=== PATIENT | female | born 1965 | race Caucasian/White ===

== ENCOUNTER → 2017-10-20 | Outpatient (CLI) | payer BC ==
[2017-10-20 10:34] LABS: Basophils % (A) 1 %; Eosinophils # (A) 0.2 k/uL (0-0.7); Eosinophils % (A) 3 %; HCT 38.8 % (34.0-46.0); HGB 13.1 gm/dL (11.4-16.0); Lymphocytes % (A) 38 %; MCH 29.3 pg (25.0-35.0); MCHC 33.9 g/dL (31.0-37.0); Mean Platelet Volume 7.2; Monocytes # (A) 0.2 k/uL (0-1.0); Monocytes % (A) 4 %; Neutrophils # (A) 2.8 k/uL (1.3-7.7); Neutrophils % (A) 52 %; Platelet Count 303 k/uL (150-450); RBC 4.48 m/uL (3.80-5.40); RDW 13.2 % (11.5-15.5); WBC 5.3 k/uL (3.8-10.6)
[2017-10-20 10:37] LABS: MCV 86.6 fL (80.0-100.0)
[2017-10-20 10:42] LABS: ALT 49 U/L (9-52); AST 28 U/L (14-36); Albumin 4.1 g/dL (3.5-5.0); Alkaline Phosphatase 109 U/L (38-126); Anion Gap 10 mmol/L; Blood Urea Nitrogen 15 mg/dL (7-17); Calcium 9.8 mg/dL (8.4-10.2); Carbon Dioxide 28 mmol/L (22-30); Chloride 105 mmol/L (98-107); Cholesterol 200 mg/dL (<200); Glucose 100 mg/dL (74-99); HDL Cholesterol 63 mg/dL (40-60); LDL Cholesterol,Calculated 115 mg/dL (0-99); Potassium 4.2 mmol/L (3.5-5.1); Sodium 143 mmol/L (137-145); Total Bilirubin 0.4 mg/dL (0.2-1.3); Total Protein 6.8 g/dL (6.3-8.2); Triglycerides 110 mg/dL (<150)
[2017-10-20 19:37] LABS: Hepatitis A Ab, Total Reactive (Non-Reactive); Hepatitis C IgG Antibody Non-Reactive (Non-Reactive)
== END | disposition home or self-care (01) ==
LOC: LABWHC1 09:24
PROVIDERS: ATTEND Family Medicine
DX: A41.9 Sepsis, unspecified organism (principal); N39.0 Urinary tract infection, site not specified; Z71.89 Other specified counseling
CPT/HCPCS: 36415; 80053; 80061; 84439; 84443; 85025; 86706; 86708; 86803

== ENCOUNTER → 2017-10-26 | Outpatient (CLI) | payer BC ==
--- NOTE | 2017-10-30 12:57 | MM ---
Reason for exam: screening (asymptomatic). Last mammogram was performed 3 years and 3 months ago. History: Family history of breast cancer in maternal aunt at age 50. Physical Findings: A clinical breast exam by your physician is recommended on an annual basis and results should be correlated with mammographic findings. MG 3D Screening Mammo W/Cad Bilateral CC and MLO view(s) were taken. Prior study comparison: July 29, 2015, mammogram, performed at [facility]. July 23, 2014, bilateral MG screening mammo w CAD. July 25, 2013, UP DIGITAL LEFT BREAST MAMMOGRAM w/CAD. July 22, 2013, bilateral digital screening mammo w/CAD. The breast tissue is heterogeneously dense. This may lower the sensitivity of mammography. Finding: There are indeterminate calcifications in the upper outer quadrant of the left breast 13-14cm from the nipple. New finding since July 29, 2015, July 23, 2014, July 25, 2013, and July 22, 2013. ASSESSMENT: Incomplete: need additional imaging evaluation, BI-RAD 0 RECOMMENDATION: Special view mammogram of the left breast. [facility] will attempt to contact patient to return for supplemental views.
== END | disposition home or self-care (01) ==
LOC: RADMAMWWP 09:05
PROVIDERS: ATTEND Obstetrics & Gynecology
DX: Z12.31 Encounter for screening mammogram for malignant neoplasm of breast (principal); Z80.3 Family history of malignant neoplasm of breast
CPT/HCPCS: 77063; 77067

== ENCOUNTER → 2017-11-02 | Outpatient (CLI) | payer BC ==
--- NOTE | 2017-11-03 08:10 | MM ---
Reason for exam: additional evaluation requested from abnormal screening. Last mammogram was performed less than 1 month ago. History: Family history of breast cancer in maternal aunt at age 50. Physical Findings: Nurse did not find any significant physical abnormalities on exam. MG Work Up Mamm w CAD LT CC with magnification, ML with magnification, and LM view(s) were taken of the left breast. Prior study comparison: October 26, 2017, bilateral MG 3d screening mammo w/cad. July 29, 2015, mammogram, performed at [facility]. Finding: There are indeterminate calcifications in the upper outer quadrant of the left breast. These results were verbally communicated with the patient and result sheet given to the patient on 11/02/17. ASSESSMENT: Suspicious, BI-RAD 4 RECOMMENDATION: Stereotactic core biopsy of the left breast. Called Dr. Perez with mammographic findings and has scheduled an appointment for the patient for 11/17/17 at 9:[address] Mtz. PRELIMINARY REPORT CALLED AND FAXED TO DR. MTZ ON 11/03/17.
== END | disposition home or self-care (01) ==
LOC: RADMAMWWP 14:32
PROVIDERS: ATTEND Obstetrics & Gynecology
DX: R92.8 Other abnormal and inconclusive findings on diagnostic imaging of breast (principal)
CPT/HCPCS: 77065

== ENCOUNTER 2018-01-10 06:34 | Day surgery (SDC) | payer BC ==
[2017-12-12 12:22] VITALS: BMI 34.2
[~2018-01-10 06:34] MED LIST: LACTATED RINGERS 1,000 ML IV SCH
[2018-01-10] MEDS ORDERED: LACTATED RINGERS 1,000 ML IV ONE (06:43)
[2018-01-10 06:57] VITALS: TEMP 98.1
[2018-01-10] MEDS ORDERED: LIDOCAINE 1% INJ 10MG/ML (20 ML MDV) ONE (07:10)
[2018-01-10] MEDS ORDERED: PROPOFOL 10 MG/ML 20 ML VIAL IV ONE (07:10)
--- NOTE | 2018-01-10 07:32 | P.PCN ---
Date of Procedure: 01/10/18 Procedure(s) Performed: Brief history: Patient is a pleasant 52-year-old white female, scheduled for an elective upper endoscopy as well as colonoscopy as a part of evaluation of long-standing history of GERD and screening for colorectal neoplasia. Procedure performed: Esophagogastroduodenoscopy with biopsy Colonoscopy with snare polypectomy Preoperative diagnosis: GERD Screening for colon cancer Anesthesia: MAC Procedure: After informed consent was obtained from the patient was brought into the endoscopy unit and IV sedation was administered by anesthesia under continuous monitoring. Initially upper endoscopy was done. The Olympus GF 160 video endoscope was inserted inserted into the mouth and esophagus intubated without any difficulty and was gradually advanced into the stomach and duodenum and carefully examined. The bulb and second part of the duodenum appeared normal. The scope was then withdrawn into the stomach adequately insufflated with air and upon careful examination the antrum appeared normal. In the gastric body there were multiple small gastric polyps noted which were biopsied. The rest of the body, cardia and fundus appeared normal. The scope was then withdrawn into the esophagus. The GE junction was located at 40 cm to the incisors. It appeared regular with no erythema erosions or ulcerations. Rest of the esophagus appeared normal. Patient tolerated the procedure well. At this time the patient continued to remain sedation. Initial digital rectal examination was normal. Olympus CF 160 video colonoscope was then inserted into the rectum and gradually advanced to the cecum without any difficulty. Careful examination was performed as the scope was gradually being withdrawn. The prep was excellent. The cecum, ascending colon, transverse colon, descending colon, sigmoid colon and rectum appeared normal. In the distal rectum there was a 5 mm sessile polyp that was removed by snare polypectomy. Retroflexion was performed in the rectum and no lesions were noted. Patient tolerated the procedure well. Impression: 1. Upper endoscopy revealed multiple small gastric polyps and LA grade B reflux esophagitis 2. Colonoscopy revealed 5 mm distal rectal polyp that was removed by snare polypectomy. Rest of the colon appeared normal. Recommendations: Findings of this examination were discussed with the patient as well as her family. She was advised to follow with the biopsy results. If the biopsy shows a tubular adenoma she can have a repeat colonoscopy in 5 years. In the meantime she will continue with omeprazole 40 mg daily and continue to follow antireflux measures.
[2018-01-10 07:38] VITALS: RESP 16
[2018-01-10 08:30] VITALS: BP 114/68; PULSE 69
== END 2018-01-10 08:44 | disposition home or self-care (01) ==
LOC: ORWHC2ENDO 06:34
PROVIDERS: ATTEND Internal Medicine Gastroenterology
DX: Z12.11 Encounter for screening for malignant neoplasm of colon (principal); K31.7 Polyp of stomach and duodenum; K29.50 Unspecified chronic gastritis without bleeding; D12.8 Benign neoplasm of rectum; K21.0 Gastro-esophageal reflux disease with esophagitis; Z79.899 Other long term (current) drug therapy; Z79.1 Long term (current) use of non-steroidal anti-inflammatories (NSAID); Z88.2 Allergy status to sulfonamides
CPT/HCPCS: 81025; 88305; 45385; 43239; J2001; J2704

== ENCOUNTER → 2018-05-30 | Outpatient (CLI) | payer BC ==
--- NOTE | 2018-05-30 12:46 | XR ---
EXAMINATION TYPE: XR knee complete LT DATE OF EXAM: 05/30/2018 CLINICAL HISTORY: Left knee pain. TECHNIQUE: Three views of the left knee are obtained. COMPARISON: None. FINDINGS: There is no acute fracture/dislocation evident in left knee. There is mild to moderate omero nt space loss with moderate spurring medial aspect of the medial tibiofemoral compartment. There is m ild to moderate joint space loss and spurring patellofemoral compartment. Posterior calcifications or ossifications favor phleboliths or popliteal loose bodies. IMPRESSION: As above.
== END | disposition home or self-care (01) ==
LOC: RADXRMAIN 11:54
PROVIDERS: ATTEND Family Medicine
DX: M76.892 Other specified enthesopathies of left lower limb, excluding foot (principal); M25.562 Pain in left knee

== ENCOUNTER → 2018-07-11 | Outpatient (CLI) | payer BC ==
--- NOTE | 2018-07-11 08:40 | MR ---
EXAMINATION TYPE: MR knee LT wo con DATE OF EXAM: 07/11/2018 COMPARISON: 05/30/2018 HISTORY: Left knee pain TECHNIQUE: Multiplanar, multisequence imaging of the left knee is performed without IV contrast. FINDINGS: MEDIAL MENISCUS: There is a longitudinal tear with extent through the anterior horn, the distal body, and posterior horn of the medial meniscus without extent into the anterior or posterior root. There is associated 5 mm of meniscal extrusion. Additionally there is ar 2 mm parameniscal cyst. LATERAL MENISCUS: Anterior and posterior horns are intact without tear. CRUCIATE LIGAMENTS: The anterior and posterior cruciate ligaments are intact and unremarkable. COLLATERAL LIGAMENTS: There is high signal within the most anterior origin fibers of the medial colla teral ligament with high signal seen superficial and deep to the medial collateral ligament. The late ral collateral ligament complex is intact and unremarkable. EXTENSOR MECHANISM: Visualized quadriceps and patellar tendons are intact. Minimal nonspecific infrap atellar subcutaneous edema is seen overlying the patellar tendon. EFFUSION: No significant suprapatellar joint effusion. POPLITEAL CYST: There is a complex elongated popliteal cyst with multiple septations and internal T2 /PD/T1 hypointense calcified bodies. This is elongated measuring 3.5 x 1.2 x 7.2 cm in anterior poste rior by transverse by craniocaudal dimension. TRICOMPARTMENT SPACES: There is mild tricompartmental joint space loss. Small marginal osteophytes ar e also seen within the tricompartmental spaces. CARTILAGE: There is a full-thickness 0.6 x 0.3 cm cartilaginous defect of the anterior lateral femora l condyle with unstable 4 mm osteochondral defect is there is peripheral crescentic increased PD sign al such as on sagittal PD fat-sat image 12. There is also partial thickness cartilaginous loss of the lateral aspect of the weightbearing surface and medial aspect of the weightbearing surface of the la teral femoral condyle with both defects measuring 6 mm on coronal PD fat-sat image 19. There is full-thickness cartilaginous loss of the posterior weightbearing surface of the medial femor al condyle although this is difficult to measure accurately given the close apposition with the abnor mal meniscus. However there is underlying focal bone marrow edema over subchondral cystic formation m easuring 4 mm on sagittal image 22 and coronal image 21. There is signal heterogeneity throughout the remainder of the lateral compartment cartilage. There is full-thickness cartilaginous loss of the patellar apex with partial-thickness cartilaginous defects throughout the remainder of the lateral and medial facets of the patella with multifocal PD h yperintense subchondral cystic formation. There are 3 focal fissures within the trochlear cartilage. IMPRESSION: 1. Longitudinal tear extending through the anterior horn, body, and posterior horn of the medial meni scus without extent into the meniscal roots. Associated 2 mm parameniscal cyst is seen with 5 mm of m eniscal extrusion. 2. Low-grade tear of a few of the anterior origin fibers of the medial collateral ligament. Superimpo sed medial collateral ligament bursitis is suspected. 3. Large complex popliteal fossa cyst containing loose bodies that may have originated from the joint space and pass through 8 posterior joint bursal communication or arose de patrick on account of chondro metaplasia. 3. Unstable 4 mm osteochondral defect of the anterior lateral femoral condyle due to a full-thickness 6 mm cartilaginous defect. 4. Moderate tricompartmental osteochondrosis and arthropathy.
== END ==
LOC: RADMRIMAIN 06:48
PROVIDERS: ATTEND Family Medicine
DX: S83.242A Other tear of medial meniscus, current injury, left knee, initial encounter (principal); S83.412A Sprain of medial collateral ligament of left knee, initial encounter; M17.12 Unilateral primary osteoarthritis, left knee; M71.22 Synovial cyst of popliteal space [Baker], left knee; M91.12 Juvenile osteochondrosis of head of femur [Legg-Calve-Perthes], left leg

== ENCOUNTER → 2018-07-12 | Outpatient (CLI) | payer BC ==
--- NOTE | 2018-07-12 14:31 | MM ---
Reason for exam: follow-up at short interval from prior study. Last mammogram was performed 8 months ago. History: Family history of breast cancer in maternal aunt at age 50. Benign MG stereo VAD BX LT of the left breast, November 23, 2017. Physical Findings: Nurse did not find any significant physical abnormalities on exam. MG 3D Diag Mammo W/Cad LT CC, MLO, ML, and spot compression CC view(s) were taken of the left breast. Prior study comparison: November 02, 2017, left breast MG work up mamm w CAD LT. October 26, 2017, bilateral MG 3d screening mammo w/cad. The breast tissue is heterogeneously dense. This may lower the sensitivity of mammography. Left biopsy marker noted. There is a central, slightly lateral middle depth left breast asymmetry that improves on spot compression imaging and appears as fibroglandular tissue. These results were verbally communicated with the patient and result sheet given to the patient on 07/12/18. ASSESSMENT: Benign, BI-RAD 2 RECOMMENDATION: Return to routine screening mammogram schedule for both breasts.
== END | disposition home or self-care (01) ==
LOC: RADMAMWWP 12:57
PROVIDERS: ATTEND Surgery
DX: R92.8 Other abnormal and inconclusive findings on diagnostic imaging of breast (principal)
CPT/HCPCS: 77061; 77065

== ENCOUNTER → 2018-12-14 | Outpatient (CLI) | payer BC ==
--- NOTE | 2018-12-14 14:47 | MM ---
Reason for exam: screening (asymptomatic). Last mammogram was performed 5 months ago. History: Family history of breast cancer in maternal aunt at age 50. Benign MG stereo VAD BX LT of the left breast, November 23, 2017. Physical Findings: A clinical breast exam by your physician is recommended on an annual basis and results should be correlated with mammographic findings. MG 3D Screening Mammo W/Cad Bilateral CC and MLO view(s) were taken. Prior study comparison: July 12, 2018, left breast MG 3d diag mammo w/cad LT. November 02, 2017, left breast MG work up mamm w CAD LT. The breast tissue is heterogeneously dense. This may lower the sensitivity of mammography. Previous mammotome biopsy in the left breast. There is chronic nodularity in the left breast. There is no discrete abnormality. ASSESSMENT: Benign, BI-RAD 2 RECOMMENDATION: Routine screening mammogram of both breasts in 1 year.
== END ==
LOC: RADMAMWWP 08:22
PROVIDERS: ATTEND Obstetrics & Gynecology
DX: Z12.31 Encounter for screening mammogram for malignant neoplasm of breast (principal)
CPT/HCPCS: 77063; 77067

== ENCOUNTER → 2018-12-14 | Outpatient (CLI) | payer BC ==
[2018-12-14 09:42] LABS: Basophils # (A) 0.1 k/uL (0-0.2); Basophils % (A) 1 %; Eosinophils # (A) 0.2 k/uL (0-0.7); Eosinophils % (A) 3 %; HCT 42.2 % (34.0-46.0); HGB 13.5 gm/dL (11.4-16.0); Lymphocytes # (A) 2.2 k/uL (1.0-4.8); Lymphocytes % (A) 31 %; MCH 28.3 pg (25.0-35.0); MCHC 31.9 g/dL (31.0-37.0); MCV 88.6 fL (80.0-100.0); Mean Platelet Volume 7.3; Monocytes # (A) 0.4 k/uL (0-1.0); Monocytes % (A) 5 %; Neutrophils # (A) 4.1 k/uL (1.3-7.7); Neutrophils % (A) 59 %; Platelet Count 374 k/uL (150-450); RBC 4.76 m/uL (3.80-5.40); RDW 14.1 % (11.5-15.5)
[2018-12-14 16:21] LABS: Albumin 4.5 g/dL (3.80-4.90); Albumin/Globulin Ratio 2.37 (1.60-3.17); Anion Gap 7.5 mmol/L (4.00-12.00); Calcium 9.9 mg/dL (8.7-10.3); Carbon Dioxide 25.5 mmol/L (21.6-31.8); Globulin 1.9 g/dL (1.6-3.3); Potassium 4.4 mmol/L (3.5-5.5); Total Bilirubin 0.3 mg/dL (0.2-1.2); Total Protein 6.4 g/dL (6.2-8.2)
== END ==
LOC: LABWHC1 08:26
PROVIDERS: ATTEND Family Medicine
DX: Z00.00 Encounter for general adult medical examination without abnormal findings (principal); K21.9 Gastro-esophageal reflux disease without esophagitis; E66.09 Other obesity due to excess calories; Z79.899 Other long term (current) drug therapy
CPT/HCPCS: 36415; 80053; 80061; 84439; 84443; 85025

== ENCOUNTER → 2020-08-21 | Outpatient (CLI) | payer BC ==
--- NOTE | 2020-08-21 08:49 | MM ---
Reason for exam: additional evaluation requested from prior study. Last mammogram was performed 1 year and 8 months ago. History: Family history of breast cancer in maternal aunt at age 50. Benign MG stereo VAD BX LT of the left breast, November 23, 2017. Physical Findings: Nurse did not find any significant physical abnormalities on exam. MG 3D Diag Mammo W/Cad ADELA Bilateral CC and MLO view(s) were taken. Prior study comparison: December 14, 2018, bilateral MG 3d screening mammo w/cad. July 12, 2018, left breast MG 3d diag mammo w/cad LT. The breast tissue is heterogeneously dense. This may lower the sensitivity of mammography. No significant new findings when compared with previous films. These results were verbally communicated with the patient and result sheet given to the patient on 08/21/20. ASSESSMENT: Benign, BI-RAD 2 RECOMMENDATION: Routine screening mammogram of both breasts in 1 year.
== END | disposition home or self-care (01) ==
LOC: RADMAMWWP 07:06
PROVIDERS: ATTEND Obstetrics & Gynecology
DX: N64.4 Mastodynia (principal)
CPT/HCPCS: 77062; 77066

== ENCOUNTER → 2020-08-21 | Outpatient (CLI) | payer BC ==
[2020-08-21 08:41] LABS: Basophils % (A) 0 %; Eosinophils # (A) 0.2 k/uL (0-0.7); Eosinophils % (A) 2 %; HCT 41.9 % (34.0-46.0); HGB 13.2 gm/dL (11.4-16.0); Lymphocytes # (A) 2.1 k/uL (1.0-4.8); Lymphocytes % (A) 31 %; MCH 28.1 pg (25.0-35.0); MCHC 31.5 g/dL (31.0-37.0); MCV 89.1 fL (80.0-100.0); Mean Platelet Volume 7.7; Monocytes # (A) 0.4 k/uL (0-1.0); Monocytes % (A) 6 %; Neutrophils # (A) 3.8 k/uL (1.3-7.7); Neutrophils % (A) 58 %; Platelet Count 326 k/uL (150-450); RDW 14.1 % (11.5-15.5); WBC 6.7 k/uL (3.8-10.6)
[2020-08-21 09:02] LABS: ALT 31 U/L (4-34); AST 27 U/L (14-36); African American GFR (CKD) >90 (>60 ml/min/1.73 sqM); Albumin 4.4 g/dL (3.5-5.0); Alkaline Phosphatase 114 U/L (38-126); Anion Gap 5 mmol/L; Blood Urea Nitrogen 18 mg/dL (7-17); Calcium 10.3 mg/dL (8.4-10.2); Carbon Dioxide 28 mmol/L (22-30); Chloride 105 mmol/L (98-107); Glucose 106 mg/dL (74-99); Non-African American GFR(CKD) >90 (>60 ml/min/1.73 sqM); Potassium 4.4 mmol/L (3.5-5.1); Sodium 138 mmol/L (137-145); Total Bilirubin 0.6 mg/dL (0.2-1.3); Total Protein 7.3 g/dL (6.3-8.2)
== END | disposition home or self-care (01) ==
LOC: LABPAT 07:52
PROVIDERS: ATTEND Orthopaedic Surgery Sports Medicine
DX: Z01.818 Encounter for other preprocedural examination (principal); Z01.812 Encounter for preprocedural laboratory examination
CPT/HCPCS: 80053; 85025; 87070; 93005

== ENCOUNTER → 2020-08-26 | Outpatient (CLI) | payer BC ==
[2020-08-26 13:56] LABS: Appearance,Urine Clear (Clear); Bilirubin,Urine Negative (Negative); Blood,Urine Negative (Negative); Color,Urine Yellow; Glucose,Urine (UA) Negative (Negative); Ketones,Urine Negative (Negative); Leukocyte Esterase,Urine Negative (Negative); Nitrite,Urine Negative (Negative); PH, Urine 5.5 (5.0-8.0); Protein,Urine Negative (Negative); Specific Gravity,Urine 1.025 (1.001-1.035); Urobilinogen,Urine <2.0 mg/dL (<2.0)
[2020-08-26 23:48] LABS: INR 0.99 (0.90-1.11); Partial Thromboplastin Time 30.7 sec (23.5-31.0); Prothrombin Time 10.7 sec (9.9-11.9)
== END | disposition home or self-care (01) ==
LOC: LABWHC1 13:11
PROVIDERS: ATTEND Orthopaedic Surgery Sports Medicine
DX: M17.12 Unilateral primary osteoarthritis, left knee (principal); M25.562 Pain in left knee
CPT/HCPCS: 36415; 81003; 85610; 85730

== ENCOUNTER 2020-08-27 07:46 | Observation (INO) | payer BC ==
[2020-08-20 16:02] VITALS: BMI 35.6
[~2020-08-27 07:46] MED LIST changes: +DEXAMETHASONE SOD PHOSPHATE 4 MG/ML 1 ML VIAL IV ONE; +HYDROmorphone 0.5 MG/0.5 ML SYRINGE IVP PRN; -LACTATED RINGERS 1,000 ML IV SCH; +LIDOCAINE 1% (10MG/ML) FOR IV START INTRADERMA PRN; +MIDAZOLAM 2 MG/2 ML VIAL IV PRN; +ONDANSETRON 4 MG/2 ML VIAL IVP ONE
[2020-08-27] MEDS ORDERED: ACETAMINOPHEN TAB 500 MG TAB ONE (08:04)
[2020-08-27] MEDS ORDERED: GABAPENTIN 300 MG CAP PO STA (08:10)
[2020-08-27] MEDS ORDERED: ACETAMINOPHEN TAB 500 MG TAB PO STA (08:11)
[2020-08-27] MEDS ORDERED: MELOXICAM 7.5 MG TAB PO STA (08:11)
[2020-08-27] MEDS ORDERED: TRANEXAMIC ACID 1,000 MG in SODIUM CHLORIDE 0.9% 100 ML IVPB PRN (08:20)
[2020-08-27] MEDS: LACTATED RINGERS 1,000 ML IV SCH ×3 (08:25→15:24)
[2020-08-27] MEDS ORDERED: SCOPOLAMINE 1.5MG/72HR PATCH TRANSDERM ONE (08:29)
[2020-08-27] MEDS ORDERED: fentaNYL (PF) 50 MCG/ML 2 ML AMP IV ONE (08:39)
[2020-08-27] MEDS ORDERED: MIDAZOLAM 2 MG/2 ML VIAL IV ONE (08:39)
[2020-08-27] MEDS ORDERED: HYDROmorphone 1 MG/ML 1 ML SYRINGE IVP PRN (09:36)
[2020-08-27] MEDS ORDERED: NALOXONE 0.4 MG/ML 1 ML VIAL IV PRN (09:36)
[2020-08-27] MEDS ORDERED: HYDROmorphone 0.5 MG/0.5 ML SYRINGE IVP PRN (09:36)
[2020-08-27] MEDS ORDERED: NA PHOS,M-B/NA PHOS,DI-BA 133 ML ENEMA RECTAL PRN (09:36)
[2020-08-27] MEDS ORDERED: traMADol 50 MG TAB PO PRN (09:36)
[2020-08-27] MEDS ORDERED: ACETAMINOPHEN TAB 325 MG TAB PO PRN (09:36)
[2020-08-27] MEDS ORDERED: HYDROmorphone 0.2 MG/1 ML SYRINGE IVP PRN (09:36)
[2020-08-27] MEDS ORDERED: MAGNESIUM HYDROXIDE 2,400 MG/10 ML CUP PO PRN (09:36)
[2020-08-27] MEDS ORDERED: TEMAZEPAM 15 MG CAP PO PRN (09:36)
[2020-08-27] MEDS ORDERED: bisacodyL 10 MG SUPP RECTAL PRN (09:36)
[2020-08-27] MEDS ORDERED: ROPIVACAINE 0.2%-NS ON-Q PUMP 1,090 MG, EMPTY PAIN BALL 1 EACH MISCELLANE PRN (09:36)
[2020-08-27] MEDS ORDERED: ONDANSETRON 4 MG/2 ML VIAL IVP PRN (09:36)
[2020-08-27] MEDS ORDERED: PHENYLEPHRINE 10 MG/ML VIAL ONE (09:37)
[2020-08-27] MEDS ORDERED: fentaNYL (PF) 50 MCG/ML 2 ML AMP ONE (09:37)
[2020-08-27] MEDS ORDERED: SODIUM CHLORIDE 0.9% 100 ML BAG ONE (09:37)
[2020-08-27] MEDS ORDERED: PROPOFOL 10 MG/ML 20 ML VIAL IV ONE (09:37)
[2020-08-27] MEDS ORDERED: TRANEXAMIC ACID 1,000 MG/10 ML VIAL ONE (09:37)
[2020-08-27] MEDS ORDERED: MIDAZOLAM 2 MG/2 ML VIAL ONE (09:37)
--- NOTE | 2020-08-27 09:37 | P.ANPRN ---
Procedure Note - Anesthesia - Nerve Block Performed Left Adductor Canal Time Out Performed: Yes (08:39) Date of Procedure: 08/27/20 Procedure Start Time: :39 Procedure Stop Time: :52 Location of Patient: PreOp Indication: Acute Post-Operative Pain, Requested by Surgeon (Dr cueto) Sedation Type: Sedate with meaningful contact maintained Preparation: Sterile Prep, Sterile Dressing Position: Supine Catheter: Indwelling Needle Types: Pajunk Needle Gauge: 21 Ultrasound used to visualize needle placement: Yes Ultrasound used to observe medication spread: Yes Injectate: 0.5% Ropivacaine (see comment for volume) (20cc) Blood Aspirated: No Pain Paresthesia on Injection Noted: No Resistance on Injection: Normal Image Stored and Saved: Yes Events: Uneventful and Well Tolerated
[2020-08-27] MEDS ORDERED: HYDROcodone/APAP 7.5-325MG 1 EACH TAB PO PRN (09:41)
[2020-08-27] MEDS ORDERED: ROPIVACAINE/EPI/CLONIDINE/KET 50 ML SYRINGE MISCELLANE PRN (10:01)
[2020-08-27] MEDS: ROPIVACAINE 246.25 MG, EPINEPHrine 0.5 MG, KETOROLAC 30 MG, cloNIDine HCL/PF 80 MCG, WA... MISCELLANE PRN ×10 (10:33→10:52)
[2020-08-27] MEDS ORDERED: ceFAZolin 3,000 MG in SODIUM CHLORIDE 0.9% IRRIGATIO 3,000 ML IRRIGATION ONE (10:34)
[2020-08-27] MEDS ORDERED: LACTATED RINGERS 1,000 ML IV ONE (10:34)
--- NOTE | 2020-08-27 12:16 | XR ---
EXAMINATION TYPE: XR knee limited LT DATE OF EXAM: 08/27/2020 CLINICAL HISTORY: Left knee pain and arthritis status post total knee replacement. TECHNIQUE: Portable AP and crosstable lateral views of the left knee are obtained immediately postop eratively. COMPARISON: Left knee x-ray May 30, 2018 FINDINGS: Metallic hardware from total left knee arthroplasty is seen and appears satisfactory in al ignment and position. There is evidence of recent surgery with diffuse subcutaneous gas and soft tis estrella swelling noted. IMPRESSION: METALLIC HARDWARE FROM TOTAL LEFT KNEE ARTHROPLASTY IS SATISFACTORY IN ALIGNMENT.
--- NOTE | 2020-08-27 17:45 | OP ---
OPERATIVE REPORT DATE OF PROCEDURE: 08/27/2020 SURGEON: Sandeep Graves M.D. COMPRESSED GASES TESTER: Azael Pizano PA-C. PREOPERATIVE DIAGNOSIS: Left knee osteoarthrosis. POSTOPERATIVE DIAGNOSIS: Left knee osteoarthrosis. OPERATION: Left total knee arthroplasty. ANESTHESIA: Spinal with sedation. ESTIMATED BLOOD LOSS: 100 mL. TOURNIQUET TIME: 46 minutes at 250 mmHg. COMPLICATIONS: None apparent. DRAINS: None. DISPOSITION: Post-Anesthesia Care Unit. INDICATIONS: Jonelle is a very pleasant 54-year-old female with longstanding history of left knee pain. History and physical examination are consistent with advanced left knee osteoarthrosis. She has been through significant nonoperative management up to this point. Further treatment options were discussed and she decided to go forward with left total knee arthroplasty. The risks of the procedure were discussed with her in detail. These risks include but are not limited to risk of infection, nerve damage, bleeding, pain, and a small risk of deep vein thrombosis which could lead to fatal pulmonary embolism. There is also a risk of loosening of the implant which could require revision operation. The patient understands these risks. All of her questions were answered to her satisfaction. Appropriate informed consent was obtained. DESCRIPTION OF PROCEDURE: The patient was identified in the preoperative holding area. Surgical site was marked by both the patient and myself. She was given 2 grams of Ancef IV for prophylactic purposes. She was then transferred to the operative suite, where she was placed supine on the operating room table. Spinal anesthetic was then administered and dosed per the anesthesia department without apparent complication. Examination under anesthesia was then performed. The patient was 5 to 7 degrees shy of full extension. She had 100 degrees of flexion, and the medial collateral ligament, lateral collateral ligament and posterior cruciate ligaments were stable. Tourniquet was then placed high on the left upper thigh, well padded in preparation for surgery. The patient's left lower extremity was then prepped and draped in the usual sterile fashion. A standard surgical pause was undertaken to ensure that we were operating on the correct site and that appropriate preoperative antibiotics had been given. All staff in the room were in agreement and we proceeded. The outlines of the patella were marked with a surgical pen. A planned 12 cm vertical incision centered over the patella was marked with a surgical pen. The leg was then exsanguinated with an Esmarch dressing. The knee was then flexed and the tourniquet was inflated to 250 mmHg. The total tourniquet time for the procedure was 46 minutes. Incision was then made with a 10-blade scalpel. Dissection was carried down sharply to the overlying fascia. Great care was taken to minimize the skin flaps. The knee was then exposed using a standard medial parapatellar approach. A small cuff of quadriceps tendon was then left for suturing. She was in quite a bit of varus preoperatively. A standard medial release was then made. The superficial medial collateral ligament was dissected off of the bone and around to the posterior aspect of the proximal tibia. The medial meniscus was then excised as well. The lateral meniscus was also released anteriorly. The leg was then externally rotated. The patella was everted. The knee was flexed. The retractors were then placed to protect the collateral ligaments. I then proceeded to remove the infrapatellar fat pad. This was excised sharply tangentially with the fibers of the patellar tendon. I then proceeded to remove the peripheral osteophytes. This was done with a rongeur. I then proceeded with the distal femoral resection. She did have a small flexion contracture. A planned 11 mm resection was then done. The femoral canal was then entered in the midline of the femur, approximately 10 mm anterior to the origin of the posterior cruciate ligament. The lukasz was then advanced down the center of the femur and placed intramedullary. Based on the preoperative radiographs, the angle between the anatomic and mechanical axis of the femur was approximately 4 to 5 degrees. The valgus angle of the distal femoral cutting guide was then set at 4 degrees for the left knee. The distal femoral cutting guide was then advanced over the intramedullary lukasz. This was seated firmly against the femur. I then, as mentioned, planned to take 11 mm off the distal femur. The cutting block was then secured onto the femur with pins. The jig was then removed and the distal femoral cut was made through the slot of the block. The pins were then removed. The distal femoral cutting block was removed. The accuracy of the distal femoral cuts was checked with 2 flat bars. I then proceeded with femoral sizing. The posterior referencing sizing guide was held firmly against the resected distal surface of the femur. The posterior condyles were resting on the posterior plane of the guide. The sizing stylus was then placed onto the anterior femur. The size was measured as a size 8. I then assessed for femoral rotation. The plan was for 3 degrees of external rotation. Three degrees of external rotation was placed onto the jig. These holes were then marked. I then confirmed the rotation by 3 separate methods. This was done using the epicondylar axis as well as [place] line and posterior referencing. It was deemed that the external rotation was proper. I then went forward with placing the femoral cutting block. This was placed over the previously placed pin holes. The Luis wing was then placed onto the anterior slots to ensure that we would not notch the anterior femur with the anterior femoral cut. I then proceeded with the anterior femoral cut. This was flush with the anterior cortex of the femur. The posterior cuts were then made followed by the anterior chamfer cut and then the posterior chamfer cut. The cutting block was then removed. Throughout the resection, the collateral ligaments were protected with retractors. I then placed a trial size 8 femur. It was slightly wide medial to lateral, but the narrow fit very nicely, and it fit flush with the distal end of the femur. The drill holes were then made. I then proceeded with the tibial cut. I planned for a cruciate-retaining knee. The guide was placed and set for varus, valgus and for slope. The height was set for an approximate 2 mm resection from the medial tibial plateau, which was the lower side. I was happy with the alignment and amount of resection. The cutting block was then pinned to the proximal tibia. The alignment lukasz was removed and the proximal tibia was resected with a reciprocating saw. Again this was done with retractors protecting the collateral ligaments as well as the posterior cruciate ligament. I then proceeded to evaluate the flexion and extension gaps. A 10 mm block was then placed. The flexion and extension gaps were equal. I then proceeded with resection of the posterior osteophytes. She had very minimal posterior osteophytes. This was done using a curved osteotome. This resected the posterior osteophytes, and posterior capsule stripping was done off the posterior aspect of the femur at this time. The osteophytes were then removed. I then proceeded with resection of the patella. The thickness of the patella was measured using the caliper. The thickness was 22 mm. The thickness of the anticipated patellar dome was taken into account. Resection was then performed and confirmed to be equal in 4 quadrants using a caliper. Approximately 14 mm of bone remained after resection. A 32 x 8.5 standard patellar trial was then placed. The holes were drilled and the trial was then placed. I then proceeded with sizing the tibial plate. A size C tibial plate fit very nicely. I then placed the trial femur, the tibial tray and the patellar button. A 10 mm trial tibial insert was also placed. The components fit very nicely. She had full extension and flexion. The extension and flexion gaps were equal and stable to both varus and valgus stress. The patella tracked appropriately. The tibial tray rotation was then marked with a Bovie. This was externally rotated properly. I then proceeded with tibial preparation. First we drilled femoral holes and removed the femoral component. The tibial tray was then set for proper external rotation as well as mediolateral placement onto the tibia. It was then pinned into place. I then proceeded with punching the keel. I then decided to proceed with cementing of all of our components. The knee was thoroughly irrigated with sterile saline solution via pulse lavage. The lateral geniculate artery was identified and cauterized. All blood was removed from the bone of the tibia, femur and patella with pulse lavage. I then proceeded with cementing. Two packs of antibiotic bone cement were prepared on the back table by the regional vice president surgical sales. I then proceeded with cementing of the tibia first. The cement was impacted into the keel as well as deeply seated into the bone. A second coat of cement was then placed. The tibia was then impacted into place. Excess cement was removed with [place]'s and jokers. I then proceeded with cementing of the femoral component. The femoral component was also cemented using standard technique. Excess cement was removed. A 10 mm trial insert was then placed into the knee. It was brought into full extension. A constant axial load was placed until the cement had hardened. The patellar component was then cemented. This was held firmly with a compressive device until the cement had dried. When the cement had dried, the knee was taken out of extension. All excess cement was removed from around the prosthesis. I then trialed the knee with a 10 mm insert. The flexion and extension gaps were appropriate. The knee was stable. It came into full extension. I decided to go forward with a 10 mm cross-linked cruciate-retaining tibial insert. Polyethylene was then placed onto the tibial tray and locked into place. The knee was then reduced. The knee was again further irrigated with sterile saline solution with antibiotic added. The tourniquet was then deflated. The total tourniquet time for the procedure was 46 minutes at 250 mmHg. Final components were Huang Persona size 8 narrow cruciate-retaining femoral component, a size C tibial tray, a 10 mm medial- congruent cruciate-retaining polyethylene insert and a 32 x 8.5 mm patella. I then proceeded with closure. Again the knee was thoroughly irrigated. The quadriceps tendon and the medial retinaculum were reapproximated with #2 Ethibond suture. The extensor mechanism was then closed with a running #2 Quill suture. Subcutaneous tissues were closed with 2-0 Vicryl interrupted suture. The skin was closed with a running 3-0 Quill suture. Dermabond was applied to the incision. Sterile compressive dressings were then applied. All sponge and needle counts were deemed correct prior to closure. The patient tolerated the procedure without apparent complication. She was transferred to the recovery room in stable condition. MMODL / IJN: [id number] /
[2020-08-27] MEDS ORDERED: ALBUTEROL NEBULIZED 2.5 MG/3 ML INHALATION PRN (20:09)
[2020-08-27] MEDS: SENNOSIDES-DOCUSATE SODIUM 1 EACH TAB PO SCH (21:21)
[2020-08-27] MEDS: ASPIRIN 81 MG PO SCH (21:21)
[2020-08-27] MEDS: PANTOPRAZOLE 40 MG TABLET PO SCH (21:21)
[2020-08-27] MEDS: HYDROcodone/APAP 7.5-325MG 1 EACH TAB PO PRN (21:23)
[2020-08-27] MEDS: hydrOXYzine pamoate 25 MG CAP PO PRN (21:24)
[2020-08-28] MEDS: diazePAM 5 MG TAB PO PRN ×3 (01:15→22:36)
[2020-08-28] MEDS: LACTATED RINGERS 1,000 ML IV SCH ×3 (01:15→16:07)
[2020-08-28] MEDS: HYDROcodone/APAP 7.5-325MG 1 EACH TAB PO PRN ×4 (03:30→22:36)
--- NOTE | 2020-08-28 07:49 | P.HPIM ---
History of Present Illness H&P Date: 08/28/20 Chief Complaint: Left knee osteoarthritis Consulted for postop medical management. Patient is 54-year-old female who long-standing history of left knee pain with obesity. Evaluation showed her to be significant for osteoarthritis and has attempted nonsurgical management for follow-up symptoms was been unsuccessful. Patient is postop day 1 from elective left total knee arthroplasty. Anesthesia spinal sedation loss of approximately 100 mL. She currently denies fever, muscle sensitivity is normal, nausea vomiting, diarrhea, chest pain or pressure, difficulty breathing or shortness of breath. She does mention that her leg is becoming more painful. She currently has [place] 7.5-25's every 6 hours as needed for severe pain and she is also noted to have the On-Q pump and Dilaudid IV push every 3 hours for pain for 6. Left knee incision is obscured by dressing, but it is dry and intact with left leg elevated on 2 pillows. Review of Systems Constitutional: Reports as per HPI Ears, nose, mouth and throat: Reports as per HPI Cardiovascular: Reports as per HPI Respiratory: Reports as per HPI Gastrointestinal: Reports as per HPI Genitourinary: Reports as per HPI Menstruation: Reports as per HPI Musculoskeletal: Reports as per HPI Integumentary: Reports as per HPI (Incision looking) Neurological: Reports as per HPI Psychiatric: Reports as per HPI Endocrine: Reports as per HPI Hematologic/Lymphatic: Reports as per HPI Allergic/Immunologic: Reports as per HPI Past Medical History Past Medical History: GERD/Reflux, Skin Disorder Additional Past Medical History / Comment(s): kidney stones, uti's. RECURRING IRRITATION ON BACK. VARICOSE VEINS. TESTED POS FOR HEPATITS A IN PAST. History of Any Multi-Drug Resistant Organisms: ESBL Date of last positivie culture/infection: 09/17/17 MDRO Source:: ESBL URINE, treated and cleared Past Surgical History: Breast Surgery, Orthopedic Surgery Additional Past Surgical History / Comment(s): Right KNEE SX, lithotripsy, kidney stents, bilat bilateral shouldeR SX. LT leg FRACTURES surgery, 2006. LT BREAST BIOPSY. Past Anesthesia/Blood Transfusion Reactions: No Reported Reaction Additional Past Anesthesia/Blood Transfusion Reaction / Comment(s): HARD IV START Past Psychological History: No Psychological Hx Reported Smoking Status: Former smoker Past Alcohol Use History: Occasional Additional Past Alcohol Use History / Comment(s): SMOKED 18-24 YEARS OF AGE, 1/2-1PPD. Past Drug Use History: None Reported - Past Family History Mother Family Medical History: No Reported History Additional Family Medical History / Comment(s): Arthritis and ? osteoporosis Father Family Medical History: Cancer, Diabetes Mellitus Additional Family Medical History / Comment(s): COLON CA Medications and Allergies Home Medications Medication Instructions Recorded Confirmed Type Omeprazole 40 mg PO DAILY 09/17/17 08/20/20 History Acetaminophen [Tylenol Extra 1,000 mg PO DAILY PRN 12/12/17 08/20/20 History Strength] Albuterol Inhaler [Ventolin Hfa 1 puff INHALATION DIRECTED PRN 08/20/20 08/20/20 History Inhaler] Ascorbic Acid [Vitamin C] 500 mg PO DAILY 08/20/20 08/20/20 History Calcium/Magnesium/Zinc 1 each PO DAILY 08/20/20 08/20/20 History [Arbjuol-Eimldzipe-Zzxg Tablet] Cider Vinegar [Apple Cider Vinegar] 1 dose PO DAILY 08/20/20 08/20/20 History Ibuprofen 800 mg PO DIRECTED PRN 08/20/20 08/20/20 History [employer] 1 tab PO DAILY 08/20/20 History Multivit with Calcium,Iron,Min 1 each PO DAILY 08/20/20 08/20/20 History [Women's Multivitamin] Vitamin Pack 1 dose PO DAILY 08/20/20 History Allergies Allergy/AdvReac Type Severity Reaction Status Date / Time sulfamethoxazole AdvReac "HAVE Verified 08/27/20 08:06 [From Bactrim] BECOME IMMUNE TO IT" trimethoprim [From Bactrim] AdvReac "HAVE Verified 08/27/20 08:06 BECOME IMMUNE TO IT" Physical Exam Vitals: Vital Signs Temp Pulse Pulse Resp BP BP Pulse Ox 08/28/20 01:14 98.5 F 65 16 123/64 94 L 08/27/20 19:34 57 L 22 08/27/20 19:02 98.1 F 57 L 22 118/73 95 08/27/20 15:03 98.9 F 68 17 132/77 100 08/27/20 14:30 50 L 16 99/57 100 08/27/20 14:00 52 L 16 94/52 99 08/27/20 13:30 52 L 16 95/53 99 08/27/20 13:15 56 L 16 98/54 99 08/27/20 13:00 52 L 16 110/55 100 08/27/20 12:45 54 L 16 104/52 100 08/27/20 12:30 53 L 16 112/56 100 08/27/20 12:20 50 L 16 109/57 100 08/27/20 12:05 53 L 16 102/55 93 L 08/27/20 11:50 57 L 16 110/54 95 08/27/20 11:36 97.2 F L 86 16 160/68 96 08/27/20 09:04 66 20 132/66 100 08/27/20 08:04 98.6 F 79 16 158/89 96 Intake and Output 08/27/20 08/28/20 08/28/20 22:59 06:59 14:59 Output Total 500 650 Balance -500 -650 Output: Urine 500 650 Other: Voiding Method Toilet # Voids 6 Weight 93 kg GENERAL: Well-appearing, well-nourished and in no acute distress. HEAD: Atraumatic, normocephalic. EYES: Pupils equal round and reactive to light, extraocular movements intact, sclera anicteric, conjunctiva are normal. ENT:nares patent, oropharynx clear without exudates. Moist mucous membranes. NECK: Normal range of motion, supple without lymphadenopathy or JVD, no thyromegaly LUNGS: Breath sounds clear to auscultation bilaterally and equal. No wheezes rales or rhonchi. HEART: Regular rate and rhythm without murmurs, rubs or gallops.S1S2 Normal ABDOMEN: Soft, nontender, normoactive bowel sounds. No guarding, no rebound. No masses appreciated. EXTREMITIES: Normal range of motion with all extremities except left leg, left knee incision obscured by dressing although it is dry and intact, bilateral PT and DP pulses are +2. No clubbing or cyanosis. NEUROLOGICAL: Cranial nerves II through XII grossly intact. Normal speech, normal gait. PSYCH: Normal mood, normal affect. SKIN: Warm, Dry, normal turgor, no rashes or lesions noted. Thrombosis Risk Factor Assmnt - Choose All That Apply Any of the Below Risk Factors Present?: Yes Each Factor Represents 1 point: Age 41-60 years, Obesity (BMI >25) Each Risk Factor Represents 2 Points: Major surgery Each Risk Factor Represents 5 Points: Elective major lower extremity arthoplasty Thrombosis Risk Factor Assessment Total Risk Factor Score: 9 Thrombosis Risk Factor Assessment Level: High Risk Assessment and Plan (1) Osteoarthritis of left knee Current Visit: Yes Status: Acute Code(s): M17.12 - UNILATERAL PRIMARY OSTEOARTHRITIS, LEFT KNEE SNOMED Code(s): 906406460104450 (2) History of arthroplasty of left knee Current Visit: Yes Status: Acute Code(s): Z96.652 - PRESENCE OF LEFT ARTIFICIAL KNEE JOINT SNOMED Code(s): 677538875 (3) Postoperative pain of left knee Current Visit: Yes Status: Acute Code(s): G89.18 - OTHER ACUTE POSTPROCEDURAL PAIN; M25.562 - PAIN IN LEFT KNEE SNOMED Code(s): 69174969 Plan: 1. Await results her CBC. 2. Continue with pain management current prescribed medications. 3. Physical therapy for left knee rehabilitation. 4. Regular diet. 5. We'll follow closely for medical management and will reassess again tomorrow. Time with Patient: Greater than 30
[2020-08-28 07:54] LABS: Basophils % (A) 0 %; Eosinophils # (A) 0.1 k/uL (0-0.7); Eosinophils % (A) 1 %; HCT 30.2 % (34.0-46.0); Lymphocytes # (A) 2.5 k/uL (1.0-4.8); Lymphocytes % (A) 27 %; MCH 28.7 pg (25.0-35.0); MCHC 32.3 g/dL (31.0-37.0); MCV 88.9 fL (80.0-100.0); Mean Platelet Volume 7.8; Monocytes # (A) 0.6 k/uL (0-1.0); Monocytes % (A) 7 %; Neutrophils # (A) 6.1 k/uL (1.3-7.7); Neutrophils % (A) 65 %; Platelet Count 245 k/uL (150-450); RDW 14.6 % (11.5-15.5); WBC 9.4 k/uL (3.8-10.6)
[2020-08-28 08:06] LABS: HGB 9.8 gm/dL (11.4-16.0)
--- NOTE | 2020-08-28 08:07 | P.PN ---
Progress Note - Text Progress Note Date: 08/28/20 Postoperative day # 1 status post total knee arthroplasty, under spinal anesth esia, and adductor canal catheter placed for postoperative analgesia. Currently on ropivacaine 0.2% 8 mL per hour with continuous infusion. There is no erythema, and there is no tenderness at site of catheter insertion. Patient had some pain in the posterior aspect of knee. Otherwise doing very well VAS: 2/10 Breakthrough Meds: When necessary Percocet Complications: None . Plan: Plan is to continue: Plans to continue the current settings. Patient will go home as planned.
[2020-08-28] MEDS: ASPIRIN 81 MG PO SCH ×2 (08:13→19:37)
[2020-08-28] MEDS: ASCORBIC ACID 500 MG TAB PO SCH (08:13)
[2020-08-28] MEDS: hydrOXYzine pamoate 25 MG CAP PO PRN ×2 (08:13→19:36)
[2020-08-28] MEDS: MULTIVITAMINS, THERA 1 EACH TAB PO SCH (08:13)
[2020-08-28] MEDS: PANTOPRAZOLE 40 MG TABLET PO SCH (08:14)
[2020-08-28] MEDS ORDERED: NON FORMULARY DRUG (Multivit With Calcium,Iron,Min [Women's Multivitamin] 1 EACH Tablet) PO SCH (09:00)
[2020-08-28] MEDS ORDERED: NON FORMULARY DRUG (Cider Vinegar [Apple Cider Vinegar] 300 MG Tablet) PO SCH (09:00)
[2020-08-28] MEDS ORDERED: NON FORMULARY DRUG (Calcium/Magnesium/Zinc [Calcium-Magnesium-Zinc Tablet] 1 EACH Tablet) PO SCH (09:00)
[2020-08-28] MEDS ORDERED: [UNRECOGNIZED DRUG - OTHER] PO SCH (09:00)
--- NOTE | 2020-08-28 09:53 | P.PN ---
Subjective Progress Note Date: 08/28/20 Principal diagnosis: Left TKA Patient is seen at bedside this morning. She is postop day #1 from left total knee arthroplasty. She has pain at the surgical site as expected but denies any new complaints. She denies numbness, tingling or calf pain. Review of systems is negative for fever, chills, chest pain, shortness of breath or other Objective - Vital Signs Vital signs: Vital Signs Temp 98 F 08/28/20 07:56 Pulse 79 08/28/20 07:56 Resp 16 08/28/20 07:56 BP 110/70 08/28/20 07:56 Pulse Ox 93 L 08/28/20 07:56 Intake & Output 08/27/20 08/28/20 08/28/20 18:59 06:59 18:59 Intake Total 1801 Output Total 600 650 Balance 1201 -650 Weight 93 kg Intake: IV 1801 Output: Urine 500 650 Estimated Blood Loss 100 Other: Voiding Method Toilet # Voids 6 2 - Exam Inspection reveals a benign surgical wound. There is no active bleeding or drainage. Neurovascular status is intact throughout the lower extremity with motor and sensation fully intact. Calf is soft and nontender. 2+ dorsalis pe dis pulse and less than 2 second cap refill is present - Constitutional General appearance: Present: no acute distress - Labs CBC & Chem 7: 08/28/20 07:12 Labs: Abnormal Lab Results - Last 24 Hours (Table) 08/28/20 Range/Units 07:12 RBC 3.40 L (3.80-5.40) m/uL Hgb 9.8 L D (11.4-16.0) gm/dL Hct 30.2 L (34.0-46.0) % Assessment and Plan (1) History of arthroplasty of left knee Narrative/Plan: She will continue with routine postop orthopedic protocol including pain management, wound care, PT, DVT prophylaxis and medical management. Expect that she will transfer to home later today or tomorrow Current Visit: Yes Status: Acute Priority: Medium Code(s): Z96.652 - PRESENCE OF LEFT ARTIFICIAL KNEE JOINT SNOMED Code(s): 870316352 Time with Patient: Less than 30
[2020-08-28 19:37] VITALS: TEMP 98.4
[2020-08-28] MEDS: SENNOSIDES-DOCUSATE SODIUM 1 EACH TAB PO SCH (19:37)
[2020-08-29] MEDS: LACTATED RINGERS 1,000 ML IV SCH ×2 (03:08→05:45)
[2020-08-29] MEDS: hydrOXYzine pamoate 25 MG CAP PO PRN (04:15)
[2020-08-29] MEDS: HYDROcodone/APAP 7.5-325MG 1 EACH TAB PO PRN ×2 (04:15→12:40)
[2020-08-29 08:01] VITALS: BP 167/76; PULSE 102; RESP 17
[2020-08-29] MEDS: ASCORBIC ACID 500 MG TAB PO SCH (08:51)
[2020-08-29] MEDS: ASPIRIN 81 MG PO SCH (08:52)
[2020-08-29] MEDS: PANTOPRAZOLE 40 MG TABLET PO SCH (08:52)
[2020-08-29 10:23] LABS: African American GFR (CKD) 138.8 (60.0-200.0); Albumin 3.4 g/dL (3.80-4.90); Albumin/Globulin Ratio 2.27 (1.60-3.17); Anion Gap 6.4 mmol/L (4.00-12.00); Calcium 8.4 mg/dL (8.7-10.3); Carbon Dioxide 27.6 mmol/L (21.6-31.8); Globulin 1.5 g/dL (1.6-3.3); Non-African American GFR(CKD) 119.8 (60.0-200.0); Potassium 3.3 mmol/L (3.5-5.5); Total Bilirubin 0.5 mg/dL (0.2-1.2); Total Protein 4.9 g/dL (6.2-8.2)
--- NOTE | 2020-08-29 11:38 | P.DS ---
Providers Date of admission: 08/29/20 10:58 Expected date of discharge: 08/29/20 Attending physician: Sandeep Graves Consults: 08/27/20 09:36 Consult Physician Routine Consulting Provider: Jt Muniz Consult Reason/Comments: post op medical management Do you want consulting provider notified?: Yes Primary care physician: Jt Flavio [facility] Course: This is a 54-year-old female who was last seen with the complaint of continued left knee pain. The patient has a known history of degenerative arthritis of the left knee and presents to discuss surgical options with Dr. Graves in the office. After discussion and consideration the patient elects to proceed with total left knee arthroplasty. The patient is seen preoperatively by Dr. Muniz and cleared for surgery. The patient is admitted to [facility] for total left knee arthroplasty. The procedures performed without complication or sequelae. She is doing well postoperatively. Vital signs are stable at discharge. Labs are stable at discharge. The patient is seen and examined bedside this morning. She states her pain is well-controlled in the left knee at this time. She states she is ambulating with a walker with minimal assistance. She is voiding without issue. She is tolerating her diet well. Patient states she is able to get more sleep last night. Patient denies chest pain, shortness breath, nausea, vomiting, fevers, chills. She denies numbness or tingling of the left lower extremity. Vital signs currently stable. On examination, the patient is lying in bed in no apparent distress. She is alert and oriented 3. On inspection of the left knee, there is a clean, dry, intact dressing in place. There is no bleeding or drainage the dressing. There is mild swelling of the knee. No sign of infection. Patient good strength range of motion of the left ankle and toes. Motor and sensory portion is intact of the left lower extremity. Dorsalis pedis pulse palpable, the left lower extremity is warm and well-perfused with brisk capillary refill distally. The calf is soft and nontender to palpation bilaterally, no signs of DVT. The patient is discharged to home on postop day #2, pending medical clearance. Please see orders and refer to the [facility] rec for accurate list of medications. Patient Condition at Discharge: Stable Plan - Discharge Summary Discharge Rx Participant: Yes New Discharge Prescriptions: New Aspirin [Adult Low Dose Aspirin EC] 81 mg PO BID #60 tablet. HYDROcodone/APAP 7.5-325MG [[place] 7.5-325] 1 - 2 each PO Q6HR PRN #42 tab PRN Reason: Pain No Action Omeprazole 40 mg PO DAILY Acetaminophen [Tylenol Extra Strength] 1,000 mg PO DAILY PRN PRN Reason: Pain Ibuprofen 800 mg PO DIRECTED PRN PRN Reason: Pain Ascorbic Acid [Vitamin C] 500 mg PO DAILY Albuterol Inhaler [Ventolin Hfa Inhaler] 1 puff INHALATION DIRECTED PRN PRN Reason: usually with colds or asthma Vitamin Pack 1 dose PO DAILY Cider Vinegar [Apple Cider Vinegar] 1 dose PO DAILY [employer] 1 tab PO DAILY Multivit with Calcium,Iron,Min [Women's Multivitamin] 1 each PO DAILY Calcium/Magnesium/Zinc [Zdogjaq-Lucmloxnx-Aovk Tablet] 1 each PO DAILY Discharge Medication List Omeprazole 40 mg PO DAILY 09/17/17 [History] Acetaminophen [Tylenol Extra Strength] 1,000 mg PO DAILY PRN 12/12/17 [History] Albuterol Inhaler [Ventolin Hfa Inhaler] 1 puff INHALATION DIRECTED PRN 08/20/20 [History] Ascorbic Acid [Vitamin C] 500 mg PO DAILY 08/20/20 [History] Calcium/Magnesium/Zinc [Ynwishj-Ddcehppod-Pqxw Tablet] 1 each PO DAILY 08/20/20 [History] Cider Vinegar [Apple Cider Vinegar] 1 dose PO DAILY 08/20/20 [History] Ibuprofen 800 mg PO DIRECTED PRN 08/20/20 [History] [employer] 1 tab PO DAILY 08/20/20 [History] Multivit with Calcium,Iron,Min [Women's Multivitamin] 1 each PO DAILY 08/20/20 [History] Vitamin Pack 1 dose PO DAILY 08/20/20 [History] Aspirin [Adult Low Dose Aspirin EC] 81 mg PO BID #60 tablet. 08/28/20 [Rx] HYDROcodone/APAP 7.5-325MG [[place] 7.5-325] 1 - 2 each PO Q6HR PRN #42 tab 08/28/20 [Rx] Follow up Appointment(s)/Referral(s): Jt Muniz MD [Primary Care Provider] - 09/03/20 2:00 pm Sandeep Graves MD [STAFF PHYSICIAN] - 09/09/20 1:00 pm [facility] Visiting Nurse, [NON-STAFF] - As Needed Activity/Diet/Wound Care/Special Instructions: Weightbear as tolerated Keep wound clean and dry take meds as directed F/U in office with Dr. Graves May shower in 3 days if no bleeding
[2020-08-29] MEDS ORDERED: POTASSIUM CHLORIDE ER 20 MEQ TAB.ER PO STA (11:51)
[2020-08-29] MEDS: MULTIVITAMINS, THERA 1 EACH TAB PO SCH (12:11)
--- NOTE | 2020-08-29 12:26 | P.PN ---
Subjective Progress Note Date: 08/29/20 Principal diagnosis: Post total knee arthroplasty Postop day #2 status post left total knee arthroplasty. Patient sitting up in bed with no complaints of shortness of breath, difficulty breathing, chest pain, and her nausea vomiting. Has been able to get up and down to the bathroom with minimal assistance. Currently has On-Q pump with ordered by mouth pain medications that have been sufficient for pain control. Surgical incision covered by dressing at this time appears to be dry and intact. Patient does admit to some pain on the posterior portion of the but is tolerable. Otherwise, patient is doing quite well at this time and feels that she go home without admission. Objective - Vital Signs Vital signs: Vital Signs Temp 98.4 F 08/29/20 08:00 Pulse 102 H 08/29/20 08:00 Resp 17 08/29/20 08:00 BP 167/76 08/29/20 08:00 Pulse Ox 91 L 08/29/20 08:00 Intake & Output 08/28/20 08/29/20 08/29/20 18:59 06:59 18:59 Other: Voiding Method Toilet Toilet Incontinent # Voids 3 3 - Exam GENERAL: Well-appearing, well-nourished and in no acute distress. HEAD: Atraumatic, normocephalic. EYES: Pupils equal round and reactive to light, extraocular movements intact, sclera anicteric, conjunctiva are normal. ENT:nares patent, oropharynx clear without exudates. Moist mucous membranes. NECK: Normal range of motion, supple without lymphadenopathy or JVD, no thyromegaly LUNGS: Breath sounds clear to auscultation bilaterally and equal. No wheezes rales or rhonchi. HEART: Regular rate and rhythm without murmurs, rubs or gallops.S1S2 Normal ABDOMEN: Soft, nontender, normoactive bowel sounds. No guarding, no rebound. No masses appreciated. EXTREMITIES: Normal range of motion with the exception of left leg his knee is noted to have mild edema and is mildly painful with flexion. No clubbing or cyanosis. PT and DP pulses intact +2 and equal bilaterally NEUROLOGICAL: Cranial nerves II through XII grossly intact. Normal speech, normal gait. PSYCH: Normal mood, normal affect. SKIN: Warm, Dry, normal turgor, no rashes or lesions noted. - Labs CBC & Chem 7: 08/28/20 07:12 08/29/20 05:45 Labs: Abnormal Lab Results - Last 24 Hours (Table) 08/29/20 Range/Units 05:45 Potassium 3.3 L (3.5-5.5) mmol/L BUN 8.0 L (9.0-27.0) mg/dL Creatinine 0.4 L (0.6-1.5) mg/dL Calcium 8.4 L (8.7-10.3) mg/dL Total Protein 4.9 L (6.2-8.2) g/dL Albumin 3.40 L (3.80-4.90) g/dL Globulin 1.5 L (1.6-3.3) g/dL Assessment and Plan (1) Osteoarthritis of left knee Current Visit: Yes Status: Acute Code(s): M17.12 - UNILATERAL PRIMARY OSTEOARTHRITIS, LEFT KNEE SNOMED Code(s): 259391019891815 (2) History of arthroplasty of left knee Current Visit: Yes Status: Acute Priority: Medium Code(s): Z96.652 - PRESENCE OF LEFT ARTIFICIAL KNEE JOINT SNOMED Code(s): 794591216 (3) Postoperative pain of left knee Current Visit: Yes Status: Acute Code(s): G89.18 - OTHER ACUTE POSTPROCEDURAL PAIN; M25.562 - PAIN IN LEFT KNEE SNOMED Code(s): 01420112 Plan: 1. Discharge home under instructions from orthopedics. 2. We'll see Dr. Muniz 09/03/2020 at 2 PM Time with Patient: Greater than 30
== END 2020-08-29 13:19 | disposition home health service (06) ==
LOC: OR 07:46 → 4SSUR 11:33 → OR 08-29 10:58 → 4SSUR 08-29 10:58
PROVIDERS: ADMIT Orthopaedic Surgery Sports Medicine; ATTEND Orthopaedic Surgery Sports Medicine
DX: M17.12 Unilateral primary osteoarthritis, left knee (principal); M25.762 Osteophyte, left knee; K21.9 Gastro-esophageal reflux disease without esophagitis; L98.9 Disorder of the skin and subcutaneous tissue, unspecified; I83.90 Asymptomatic varicose veins of unspecified lower extremity; E66.9 Obesity, unspecified; Z68.37 Body mass index [BMI] 37.0-37.9, adult; Z16.24 Resistance to multiple antibiotics; Z79.1 Long term (current) use of non-steroidal anti-inflammatories (NSAID); Z79.891 Long term (current) use of opiate analgesic; Z79.899 Other long term (current) drug therapy; Z88.1 Allergy status to other antibiotic agents; Z88.2 Allergy status to sulfonamides; Z87.81 Personal history of (healed) traumatic fracture; Z87.442 Personal history of urinary calculi; Z87.440 Personal history of urinary (tract) infections; Z98.890 Other specified postprocedural states; Z86.19 Personal history of other infectious and parasitic diseases; Z97.3 Presence of spectacles and contact lenses; Z87.891 Personal history of nicotine dependence; Z80.0 Family history of malignant neoplasm of digestive organs; Z82.49 Family history of ischemic heart disease and other diseases of the circulatory system; Z83.3 Family history of diabetes mellitus; Z82.61 Family history of arthritis
CPT/HCPCS: 97116; 97110 ×2; 97161; 81025; 64448; 76942; 80053; 85025; 88300; 73560; 27447; G0378; C1776; C1713; J2250; J0171; J1100; J2370; J0690 ×3; J2405; J3010; J1885; J2795 ×2; J2704; J0735

== ENCOUNTER → 2020-10-02 | Outpatient (CLI) | payer BC ==
[2020-10-02 09:26] VITALS: BP 147/80; PULSE 80; RESP 18; TEMP 98.3
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
== END | disposition home or self-care (01) ==
LOC: WWCWWP 08:51
PROVIDERS: ATTEND Surgery
DX: N64.4 Mastodynia (principal); M54.89 Other dorsalgia; K21.9 Gastro-esophageal reflux disease without esophagitis; N95.8 Other specified menopausal and perimenopausal disorders; Z78.0 Asymptomatic menopausal state; Z87.891 Personal history of nicotine dependence

== ENCOUNTER → 2020-11-25 | Outpatient (CLI) | payer BC ==
[2020-11-25 07:33] LABS: Appearance,Urine Clear (Clear); Bilirubin,Urine Negative (Negative); Blood,Urine Negative (Negative); Color,Urine Light Yellow; Glucose,Urine (UA) Negative (Negative); Ketones,Urine Negative (Negative); Leukocyte Esterase,Urine Negative (Negative); Nitrite,Urine Negative (Negative); PH, Urine 5.5 (5.0-8.0); Protein,Urine Negative (Negative); Specific Gravity,Urine 1.015 (1.001-1.035); Urobilinogen,Urine <2.0 mg/dL (<2.0)
[2020-11-25 08:08] LABS: HCT 40.7 % (34.0-46.0); HGB 13.7 gm/dL (11.4-16.0); MCH 28.9 pg (25.0-35.0); MCHC 33.8 g/dL (31.0-37.0); MCV 85.4 fL (80.0-100.0); Mean Platelet Volume 8.4; Platelet Count 310 k/uL (150-450); RBC 4.76 m/uL (3.80-5.40); RDW 14.5 % (11.5-15.5); WBC 6.6 k/uL (3.8-10.6)
[2020-11-25 08:22] LABS: INR 0.9 (<1.2); Partial Thromboplastin Time 23.8 sec (22.0-30.0); Prothrombin Time 10.1 sec (9.0-12.0)
[2020-11-25 08:33] LABS: ALT 122 U/L (4-34); AST 75 U/L (14-36); African American GFR (CKD) >90 (>60 ml/min/1.73 sqM); Albumin 4.3 g/dL (3.5-5.0); Alkaline Phosphatase 138 U/L (38-126); Anion Gap 7 mmol/L; Blood Urea Nitrogen 21 mg/dL (7-17); Calcium 10.5 mg/dL (8.4-10.2); Carbon Dioxide 27 mmol/L (22-30); Chloride 103 mmol/L (98-107); Glucose 102 mg/dL (74-99); Non-African American GFR(CKD) >90 (>60 ml/min/1.73 sqM); Potassium 4.4 mmol/L (3.5-5.1); Sodium 137 mmol/L (137-145); Total Bilirubin 0.4 mg/dL (0.2-1.3); Total Protein 7.2 g/dL (6.3-8.2)
== END | disposition home or self-care (01) ==
LOC: LABPAT 06:58
PROVIDERS: ATTEND Orthopaedic Surgery Sports Medicine
DX: Z01.812 Encounter for preprocedural laboratory examination (principal)
CPT/HCPCS: 36415; 80053; 81003; 85027; 85610; 85730; 87070

== ENCOUNTER 2020-12-03 10:31 | Day surgery (SDC) | payer BC ==
[2020-11-26 09:13] VITALS: BMI 32.9
[~2020-12-03 10:31] MED LIST changes: +ACETAMINOPHEN TAB 500 MG TAB PO PRN; +GABAPENTIN 300 MG CAP PO PRN; -LIDOCAINE 1% (10MG/ML) FOR IV START INTRADERMA PRN; +MELOXICAM 7.5 MG TAB PO PRN; +ONDANSETRON 4 MG/2 ML VIAL IVP PRN; +ROPIVACAINE/EPI/CLONIDINE/KET 50 ML SYRINGE MISCELLANE PRN; +TRANEXAMIC ACID 1,000 MG in SODIUM CHLORIDE 0.9% 100 ML IVPB PRN
[2020-12-03] MEDS ORDERED: LIDOCAINE 1% (10MG/ML) FOR IV START INTRADERMA ONE (11:20)
[2020-12-03] MEDS: LACTATED RINGERS 1,000 ML IV SCH ×2 (11:20→18:10)
[2020-12-03] MEDS ORDERED: bisacodyL 10 MG SUPP RECTAL PRN (11:34)
[2020-12-03] MEDS ORDERED: NALOXONE 0.4 MG/ML 1 ML VIAL IV PRN (11:34)
[2020-12-03] MEDS ORDERED: HYDROmorphone 0.2 MG/1 ML SYRINGE IVP PRN (11:34)
[2020-12-03] MEDS ORDERED: TEMAZEPAM 15 MG CAP PO PRN (11:34)
[2020-12-03] MEDS ORDERED: hydrOXYzine pamoate 25 MG CAP PO PRN (11:34)
[2020-12-03] MEDS ORDERED: HYDROcodone/APAP 5-325MG 1 EACH TAB PO PRN (11:34)
[2020-12-03] MEDS ORDERED: MAGNESIUM HYDROXIDE 2,400 MG/10 ML CUP PO PRN (11:34)
[2020-12-03] MEDS ORDERED: HYDROcodone/APAP 10-325MG 1 EACH TAB PO PRN (11:34)
[2020-12-03] MEDS ORDERED: ACETAMINOPHEN TAB 325 MG TAB PO PRN (11:34)
[2020-12-03] MEDS ORDERED: ONDANSETRON 4 MG/2 ML VIAL IVP PRN (11:34)
[2020-12-03] MEDS ORDERED: diazePAM 5 MG TAB PO PRN (11:34)
[2020-12-03] MEDS ORDERED: NA PHOS,M-B/NA PHOS,DI-BA 133 ML ENEMA RECTAL PRN (11:34)
[2020-12-03] MEDS ORDERED: HYDROmorphone 0.5 MG/0.5 ML SYRINGE IVP PRN ×2 (11:34)
[2020-12-03] MEDS ORDERED: traMADol 50 MG TAB PO PRN (11:34)
[2020-12-03] MEDS ORDERED: MIDAZOLAM 2 MG/2 ML VIAL IVP ONE (11:40)
[2020-12-03] MEDS ORDERED: TRANEXAMIC ACID 1,000 MG/10 ML VIAL ONE (11:58)
[2020-12-03] MEDS ORDERED: MIDAZOLAM 2 MG/2 ML VIAL ONE (11:58)
[2020-12-03] MEDS ORDERED: fentaNYL (PF) 50 MCG/ML 2 ML AMP ONE (11:58)
[2020-12-03] MEDS ORDERED: PROPOFOL 10 MG/ML 20 ML VIAL IV ONE (11:58)
[2020-12-03] MEDS ORDERED: ROPIVACAINE 5 MG/ML 30 ML VIAL ONE (11:58)
[2020-12-03] MEDS ORDERED: SODIUM CHLORIDE 0.9% 100 ML BAG ONE (11:58)
[2020-12-03] MEDS ORDERED: LACTATED RINGERS 1,000 ML IV ONE (13:11)
--- NOTE | 2020-12-03 15:06 | XR ---
EXAMINATION TYPE: XR knee limited RT DATE OF EXAM: 12/03/2020 CLINICAL HISTORY: Right knee pain and arthritis status post total knee replacement. TECHNIQUE: Portable AP and crosstable lateral views of the right knee are obtained immediately posto peratively. COMPARISON: None FINDINGS: Metallic hardware from total right knee arthroplasty is seen and appears satisfactory in a lignment and position. There is evidence of recent surgery with diffuse subcutaneous gas and soft ti ssue swelling noted. IMPRESSION: METALLIC HARDWARE FROM TOTAL RIGHT KNEE ARTHROPLASTY IS SATISFACTORY IN ALIGNMENT.
[2020-12-03] MEDS: ASPIRIN 81 MG PO SCH (20:38)
[2020-12-03] MEDS ORDERED: SENNOSIDES-DOCUSATE SODIUM 1 EACH TAB PO SCH (21:00)
--- NOTE | 2020-12-03 22:24 | OP ---
OPERATIVE REPORT DATE OF PROCEDURE: 12/03/2020 SURGEON: Sandeep Graves M.D. SHOT COAT TENDER: Azael Pizano PA-C. PREOPERATIVE DIAGNOSIS: Right knee osteoarthrosis. POSTOPERATIVE DIAGNOSIS: Right knee osteoarthrosis. OPERATION: Right total knee arthroplasty. ANESTHESIA: Spinal with sedation. ESTIMATED BLOOD LOSS: 100 mL. TOURNIQUET: Tourniquet time was 41 minutes at 250 mmHg. COMPLICATIONS: None apparent. DRAINS: None. DISPOSITION: Post-Anesthesia Care Unit. INDICATIONS: Jonelle is a 55-year-old female with longstanding history of right knee pain. History and physical examination are consistent with advanced right knee osteoarthrosis. She has been through significant nonoperative management up to this point. Further treatment options were discussed and she decided to go forward with right total knee arthroplasty. The risks of the procedure were discussed with her in detail. These risks include but are not limited to risk of infection, nerve damage, bleeding, pain, and a small risk of deep vein thrombosis which could lead to fatal pulmonary embolism. There is also a risk of loosening of the implant which could require revision operation. The patient understands these risks. All of her questions were answered to her satisfaction. Appropriate informed consent was obtained. DESCRIPTION OF THE PROCEDURE: The patient was identified in the preoperative holding area. Surgical site was marked by both the patient and myself. She was given 2 grams of Ancef IV for prophylactic purposes. She was then transferred to the operative suite, where she was placed supine on the operating room table. Spinal anesthetic was then administered and dosed per the anesthesia department without apparent complication. Examination under anesthesia was then performed. The patient was 2 to 3 degrees shy of full extension. She had 100 degrees of flexion, and the medial collateral ligament, lateral collateral ligament and posterior cruciate ligaments were stable. Tourniquet was then placed high on the right upper thigh, well padded in preparation for surgery. The patient's right lower extremity was then prepped and draped in the usual sterile fashion. Standard surgical pause was undertaken to ensure that we were operating on the correct site and that appropriate preoperative antibiotics had been given. All staff in the room were in agreement and we proceeded. The outlines of the patella were marked with a surgical pen. A planned 12 cm vertical incision centered over the patella was marked with a surgical pen. The leg was then exsanguinated with an Esmarch dressing. The knee was then flexed and the tourniquet was inflated to 250 mmHg. The total tourniquet time for the procedure was 41 minutes. Incision was then made with a 10-blade scalpel. Dissection was carried down sharply to the overlying fascia. Great care was taken to minimize the skin flaps. The knee was then exposed using a standard medial parapatellar approach. A small cuff of quadriceps tendon was then left for suturing. She was in a bit of varus preoperatively. A standard medial release was then made. The superficial medial collateral ligament was dissected off of the bone around to the posterior aspect of the proximal tibia. The medial meniscus was then excised as well. The lateral meniscus was also released anteriorly. The leg was then externally rotated. The patella was everted. The knee was flexed. The retractors were then placed to protect the collateral ligaments. I then proceeded to remove the infrapatellar fat pad. This was excised sharply tangentially with the fibers of the patellar tendon. I then proceeded to remove the peripheral osteophytes. This was done with a rongeur. I then proceeded with the distal femoral resection. She did have near-full extension. A planned 9 mm resection was then done. The femoral canal was then entered in the midline of the femur approximately 10 mm anterior to the origin of the posterior cruciate ligament. The lukasz was then advanced down to the center of the femur and placed intramedullary. Based on the preoperative radiographs, the angle between the anatomic and mechanical axis of the femur was approximately 4 to 5 degrees. The valgus angle of the distal femoral cutting guide was then set at 4 degrees for the right knee. The distal femoral cutting guide was then advanced over the intramedullary lukasz. This was seated firmly against the femur. I then, as mentioned, planned to take 9 mm off the distal femur. The cutting block was then secured onto the femur with pins. The jig was then removed and the distal femoral cut was made through the slot of the block. The pins were then removed and the distal femoral cutting block was removed. The accuracy of the distal femoral cuts was checked with 2 flat bars. I then proceeded with femoral sizing. The posterior referencing sizing guide was held firmly against the resected distal surface of the femur. The posterior condyles were resting on the posterior plane of the guide. The sizing stylus was then placed onto the anterior femur. The size was measured as a size 7. I then assessed for femoral rotation. The plan was for 3 degrees of external rotation. Three degrees of external rotation was placed onto the jig. These holes were then marked. I then confirmed the rotation by 3 separate methods. This was done using the epicondylar axis as well as Whitesides line and posterior referencing. It was deemed that the external rotation was proper. I then went forward with placing the femoral cutting block. This was placed over the previously placed pin holes. The Luis wing was then placed onto the anterior slots to ensure that we would not notch the anterior femur with the anterior femoral cut. I then proceeded with the anterior femoral cut. This was flush with the anterior cortex of the femur. Posterior cuts were then made followed by the anterior chamfer cut and then the posterior chamfer cut. The cutting block was then removed. Throughout the resection, the collateral ligaments were protected with retractors. I then placed a trial size 7 femur. It was slightly wide but the narrow fit very nicely and it fit flush with the distal end of the femur. The drill holes were then made. I then proceeded with the tibial cut. I planned for a cruciate-retaining knee. The guide was placed and set for varus, valgus and for slope. The height was set for an approximate 2 mm resection from the medial tibial plateau, which was the lower side. I was happy with the alignment and the amount of resection. The cutting block was then pinned to the proximal tibia. The alignment lukasz was removed and the proximal tibia was resected with a reciprocating saw. Again this was done with retractors protecting the collateral ligaments as well as the posterior cruciate ligament. I then proceeded to evaluate the flexion and extension gaps. A 10 mm block was then placed. The flexion and extension gaps were equal. I then proceeded with resection of the posterior osteophytes. She had very minimal posterior osteophytes. This was done using a curved osteotome. This resected the posterior osteophytes, and posterior capsule stripping was done off the posterior aspect of the femur. The osteophytes were then removed. I then proceeded with resection of the patella. The thickness of the patella was measured using the caliper. The thickness was 22 mm. The thickness of the anticipated patellar dome was taken into account. Resection was then performed and confirmed to be equal in 4 quadrants using a caliper. Approximately 14 mm of bone remained after resection. A 29 x 8 standard patellar trial was then placed. The holes were drilled and the trial was then placed. I then proceeded with sizing the tibial plate. A size C tibial plate fit very nicely. I then placed the trial femur, the tibial tray and the patellar button. A 10 mm trial tibial insert was also placed. The components fit very nicely. She had full extension and flexion. The extension and flexion gaps were equal and stable to both varus and valgus stress. The patella tracked appropriately. Tibial tray rotation was then marked with a Bovie. This was externally rotated properly. I then proceeded with tibial preparation. I first drilled the femoral holes and removed the femoral component. The tibial tray was then set for proper external rotation as well as mediolateral placement onto the tibia. It was then pinned into place. I then proceeded with punching the keel. I then decided to proceed with cementing of all of our components. The knee was thoroughly irrigated with sterile saline solution via pulse lavage. The lateral geniculate artery was identified and cauterized. All blood was removed from the bone of the tibia, femur and patella with pulse lavage. I then proceeded with cementing. One pack of antibiotic bone cement was prepared on the back table by the director surgical. I then proceeded with cementing the tibia first. The cement was impacted into the keel as well as deeply seated into the bone. A second coat of cement was then placed. The tibia was then impacted into place. Excess cement was removed with Katie's and jokers. I then proceeded with cementing of the femoral component. The femoral component was also cemented using standard technique. Excess cement was removed. A 10 mm trial insert was then placed into the knee. It was brought into full extension with a constant axial load placed until the cement had hardened. The patellar component was then cemented. This was held firmly with a compressive device until the cement had dried. When the cement had dried, the knee was taken out of extension. All excess cement was removed from around the prosthesis. I then trialed the knee with a 10 mm insert. The flexion and extension gaps were appropriate. I then trialed with a 12 mm insert. The flexion and extension gaps felt better. The knee was stable with the 12 mm insert. It came into full extension. I decided to go forward with a 12 mm medial-congruent, cross- linked, cruciate-retaining tibial insert. Polyethylene was then placed onto the tibial tray and locked into place. The knee was then reduced. The knee was again further irrigated with sterile saline solution with antibiotic added. The tourniquet was then deflated. The total tourniquet time for the procedure was 41 minutes at 250 mmHg. Final components were Huang Persona size 7 narrow cruciate-retaining femoral component, size C tibial tray, a 12 mm medial- congruent, cruciate-retaining polyethylene insert, and a 29 x 8 mm patella. I then proceeded with closure. Again the knee was thoroughly irrigated. The quadriceps tendon and the medial retinaculum were reapproximated with a #2 Ethibond suture. The extensor mechanism was then closed with a running #2 Quill suture. Subcutaneous tissues were closed with 2-0 Vicryl interrupted suture. The skin was closed with running 3-0 Quill suture. Dermabond was applied to the incision. Sterile compressive dressings were applied. All sponge and needle counts were deemed correct prior to closure. The patient tolerated the procedure without apparent complication. She was transferred to the recovery room in stable condition. MMODL / IJN: [id number] /
[2020-12-04 06:02] LABS: Basophils % (A) 0 %; Eosinophils # (A) 0.1 k/uL (0-0.7); Eosinophils % (A) 1 %; HCT 32.7 % (34.0-46.0); Lymphocytes # (A) 1.6 k/uL (1.0-4.8); Lymphocytes % (A) 14 %; MCH 27.7 pg (25.0-35.0); MCHC 32.2 g/dL (31.0-37.0); MCV 86.3 fL (80.0-100.0); Mean Platelet Volume 8.5; Monocytes # (A) 0.8 k/uL (0-1.0); Monocytes % (A) 7 %; Neutrophils # (A) 8.9 k/uL (1.3-7.7); Neutrophils % (A) 77 %; Platelet Count 262 k/uL (150-450); RDW 14.8 % (11.5-15.5); WBC 11.5 k/uL (3.8-10.6)
[2020-12-04 06:05] LABS: HGB 10.5 gm/dL (11.4-16.0)
--- NOTE | 2020-12-04 07:23 | P.ANPRN ---
Procedure Note - Anesthesia - Nerve Block Performed Right Adductor Canal Infusion Time Out Performed: Yes Date of Procedure: 12/03/20 Procedure Start Time: 11:39 Procedure Stop Time: 11:47 Location of Patient: PreOp Indication: Acute Post-Operative Pain, Requested by Surgeon Sedation Type: Sedate with meaningful contact maintained Preparation: Sterile Prep, Sterile Dressing Position: Supine Catheter: Indwelling Needle Types: Pajunk Needle Gauge: 21 Ultrasound used to visualize needle placement: Yes Blood Aspirated: No Pain Paresthesia on Injection Noted: No Resistance on Injection: Normal Image Stored and Saved: Yes Events: Uneventful and Well Tolerated (ropi .5% 20cc plus dexamethasone 4mg)
--- NOTE | 2020-12-04 07:24 | P.ANPRN ---
Procedure Note - Anesthesia - Nerve Block Performed Right Smileyck Single Time Out Performed: Yes Date of Procedure: 12/03/20 Procedure Start Time: 11:48 Procedure Stop Time: 11:55 Location of Patient: PreOp Indication: Acute Post-Operative Pain, Requested by Surgeon Sedation Type: Sedate with meaningful contact maintained Preparation: Sterile Prep Position: Supine Needle Types: Pajunk Needle Gauge: 21 Ultrasound used to visualize needle placement: Yes Ultrasound used to observe medication spread: Yes Blood Aspirated: No Pain Paresthesia on Injection Noted: No Resistance on Injection: Normal Image Stored and Saved: Yes Events: Uneventful and Well Tolerated (ropi .5% 20 cc)
[2020-12-04 07:32] VITALS: RESP 17
--- NOTE | 2020-12-04 07:48 | P.PN ---
Progress Note - Text 12/04/20 726am 62-year-old female status post total knee replacement by Dr. Graves. Patient has an On-Q pump for postop pain control with solution running at 8 mL an hour with a VAS of 6 or 7. Receiving oral and IV narcotics throughout the night I did not increase the rate at this point but it can be adjusted before she goes home if
[2020-12-04] MEDS: LACTATED RINGERS 1,000 ML IV SCH ×3 (08:14→08:55)
[2020-12-04] MEDS ORDERED: ALBUTEROL NEBULIZED 2.5 MG/3 ML INHALATION PRN (08:19)
[2020-12-04] MEDS: ASPIRIN 81 MG PO SCH (08:55)
[2020-12-04] MEDS ORDERED: PANTOPRAZOLE 40 MG TABLET PO SCH (09:00)
[2020-12-04] MEDS ORDERED: HYDROcodone/APAP 10-325MG 1 EACH TAB PO PRN ×2 (10:19)
--- NOTE | 2020-12-04 11:16 | P.CONS ---
History of Present Illness - Reason for Consult Consult date: 12/04/20 Medical management gastroesophageal reflux disease Requesting physician: Sandeep Graves - Chief Complaint Right knee osteoarthritis status post surgical repair - History of Present Illness This is a 55-year-old female with past medical history of gastroesophageal reflux disease, hepatitis A, kidney stones, UTIs with ESBL, vertigo, family history of PONV, former nicotine dependence, obesity, long-standing history of right knee pain secondary to osteoarthrosis, failed outpatient management and multiple other medical issues status post right total knee arthroplasty. [place] ated procedure well. Pain controlled with ice and med regimen-oral and IV. On-Q pump rate increased by anesthesia. Tolerating diet with no nausea vomiting or diarrhea. Positive bowel movement this morning. Denies chest pain, palpitations or shortness of breath. Vital signs stable, afebrile with mild elevated WBC, 11.5. Using her incentive spirometer. Hemoglobin 10.5, baseline around 13, platelets 262. Vital signs stable, maintaining O2 sats in the high 90s on room air. Review of Systems Constitutional: Denied any fatigue denied any fever. Cardio vascular: denied any chest pain, palpitations Gastrointestinal denied any nausea vomiting Pulmonary: Denied any shortness of breath cough Neurologic denied any new focal deficits ROS Statement: Those systems with pertinent positive or pertinent negative responses have been documented in the HPI. ROS Other: All systems not noted in ROS Statement are negative. Past Medical History Past Medical History: GERD/Reflux, Skin Disorder Additional Past Medical History / Comment(s): kidney stones, uti's. RECURRING IRRITATION ON BACK. VARICOSE VEINS. TESTED POS FOR HEPATITS A IN PAST. History of Any Multi-Drug Resistant Organisms: ESBL Year Discovered:: 09/17/17 MDRO Source:: ESBL URINE, treated and cleared Past Surgical History: Breast Surgery, Joint Replacement, Orthopedic Surgery Additional Past Surgical History / Comment(s): Right KNEE Meniscus repair, lithotripsy, kidney stents,bilateral shoulder, SX. LT leg FRACTURES surgery, 2006. LT BREAST BIOPSY with marker in place, lt knee replacement, Past Anesthesia/Blood Transfusion Reactions: No Reported Reaction Additional Past Anesthesia/Blood Transfusion Reaction / Comm: HARD IV START. vertigo. mother and sisters PONV mother also has dizziness and light headness Smoking Status: Former smoker - Past Family History Mother Family Medical History: No Reported History Additional Family Medical History / Comment(s): Arthritis and ? osteoporosis Father Family Medical History: Cancer, Diabetes Mellitus Additional Family Medical History / Comment(s): COLON CA Medications and Allergies Home Medications Medication Instructions Recorded Confirmed Type Omeprazole 40 mg PO QAM 09/17/17 11/26/20 History Albuterol Inhaler [Ventolin Hfa 1 puff INHALATION DIRECTED PRN 08/20/20 11/26/20 History Inhaler] HYDROcodone/APAP 7.5-325MG [[place] 1 - 2 each PO Q6HR PRN #42 tab 08/28/20 11/26/20 Rx 7.5-325] Aspirin [Adult Low Dose Aspirin EC] 81 mg PO BID #60 tablet. 12/04/20 Rx Docusate [Colace] 100 mg PO BID #60 capsule 12/04/20 Rx HYDROcodone/APAP 7.5-325MG [[place] 1 - 2 each PO Q6HR PRN #42 tab 12/04/20 Rx 7.5-325] Allergies Allergy/AdvReac Type Severity Reaction Status Date / Time sulfamethoxazole AdvReac "HAVE Verified 12/03/20 11:15 [From Bactrim] BECOME IMMUNE TO IT" trimethoprim [From Bactrim] AdvReac "HAVE Verified 12/03/20 11:15 BECOME IMMUNE TO IT" Physical Exam Vitals: Vital Signs Temp Pulse Resp BP BP Pulse Ox 12/04/20 07:29 97.4 F L 67 17 121/72 99 12/04/20 05:33 97.6 F 60 16 96/59 94 L 12/03/20 20:00 98.1 F 65 18 105/62 99 12/03/20 18:19 97.5 F L 49 L 18 111/68 95 12/03/20 16:25 52 L 16 100/51 98 12/03/20 15:52 48 L 16 98/57 97 12/03/20 15:36 48 L 16 103/58 97 12/03/20 15:21 53 L 16 102/61 98 12/03/20 15:05 61 16 96/53 95 12/03/20 14:48 50 L 16 95/51 95 12/03/20 14:15 50 L 16 95/50 99 12/03/20 14:02 57 L 16 93/50 99 12/03/20 13:50 97.5 F L 64 16 98/52 99 12/03/20 11:58 55 L 16 114/65 100 12/03/20 10:46 97.8 F 72 16 131/63 98 Intake and Output 12/03/20 12/04/20 12/04/20 22:59 06:59 14:59 Intake Total 800 Balance 800 Intake: IV 800 Other: Voiding Method Toilet Bedside Commode # Voids 1 Results CBC & Chem 7: 12/04/20 05:26 Labs: Abnormal Lab Results - Last 24 Hours (Table) 12/04/20 Range/Units 05:26 WBC 11.5 H (3.8-10.6) k/uL Hgb 10.5 L D (11.4-16.0) gm/dL Hct 32.7 L (34.0-46.0) % Neutrophils # 8.9 H (1.3-7.7) k/uL Assessment and Plan Assessment: Right knee osteoarthrosis status post right total knee arthroplasty Mild leukocytosis, suspect reactive Anemia, acute postop blood loss possibly,EBL 100ml, expected. Gastroesophageal reflux disease History of hepatitis A Former nicotine dependence History of UTI with ESBL Obesity, BMI 33.1 History of vertigo Plan:Continue on current medication regime,monitoring and symptomatic treatment. Home meds have been reviewed and resumed accordingly, including PPI. Anticoagulation/pain management as per primary. PT. Aggressive pulmonary toileting with incentive spirometer reinforced. UA ordered. Close monitoring of CBC with repeat labs ordered for a.m. or if discharged, follow up outpatient. Thank you Dr. Graves for the consult. The impression and plan of care has been dictated as directed. : I performed a history and examination of this patient, discussed the same with the dictator. I agree with the dictator's note ,documented as a scribe. Any additional findings or plans will be noted.
[2020-12-04] MEDS ORDERED: MULTIVITAMINS, THERA 1 EACH TAB PO SCH (12:00)
[2020-12-04 12:59] VITALS: BP 122/67; PULSE 86; TEMP 97.6
[2020-12-04 13:38] LABS: Appearance,Urine Clear (Clear); Bilirubin,Urine Negative (Negative); Blood,Urine Negative (Negative); Color,Urine Yellow; Glucose,Urine (UA) Negative (Negative); Ketones,Urine Negative (Negative); Leukocyte Esterase,Urine Negative (Negative); Nitrite,Urine Negative (Negative); Protein,Urine Negative (Negative); Specific Gravity,Urine 1.023 (1.001-1.035); Urobilinogen,Urine <2.0 mg/dL (<2.0)
--- NOTE | 2020-12-04 14:48 | P.DS ---
Providers Expected date of discharge: 12/04/20 Attending physician: Sandeep Graves Consults: 12/03/20 11:34 Consult Physician Routine Consulting Provider: Jt Muniz Consult Reason/Comments: post op medical management Do you want consulting provider notified?: Yes Primary care physician: Jt Muniz - Discharge Diagnosis(es) (1) Osteoarthritis of right knee Patient was admitted to the OR on 12/03/20 to undergo a right total knee arthroplasty. She had failed conservative measures as an outpatient and desired to proceed with elective surgery after given informed consent. She underwent the above procedure which she tolerated well without complication. Postoperative hospital course has remained without complication. On day of discharge she is afebrile, vital signs stable, labs within acceptable ranges, tolerating by mouth meds and diet, voiding without difficulty, positive flatus, denies abdominal pain or calf pain, pain is controlled on oral pain medication and has no new complaints. Wound is benign, neurovascular status is intact, calf is soft and nontender, abdomen soft and nontender. Review of systems is negative for numbness, tingling, fever, chills, chest pain, shortness of breath, nausea, vomiting, dizziness, headaches, slurred speech or other. Current Visit: Yes Status: Acute Priority: Medium Procedures: Right TKA Patient Condition at Discharge: Good Plan - Discharge Summary Discharge Rx Participant: Yes New Discharge Prescriptions: New Docusate [Colace] 100 mg PO BID #60 capsule Aspirin [Adult Low Dose Aspirin EC] 81 mg PO BID #60 tablet. HYDROcodone/APAP 10-325MG [[place] 10-325] 1 tab PO Q4HR PRN #42 tab PRN Reason: Pain No Action Omeprazole 40 mg PO QAM Albuterol Inhaler [Ventolin Hfa Inhaler] 1 puff INHALATION DIRECTED PRN PRN Reason: usually with colds or asthma HYDROcodone/APAP 7.5-325MG [[place] 7.5-325] 1 - 2 each PO Q6HR PRN #42 tab PRN Reason: Pain Discharge Medication List Omeprazole 40 mg PO QAM 09/17/17 [History] Albuterol Inhaler [Ventolin Hfa Inhaler] 1 puff INHALATION DIRECTED PRN 08/20/20 [History] HYDROcodone/APAP 7.5-325MG [[place] 7.5-325] 1 - 2 each PO Q6HR PRN #42 tab 08/28/20 [Rx] Aspirin [Adult Low Dose Aspirin EC] 81 mg PO BID #60 tablet. 12/04/20 [Rx] Docusate [Colace] 100 mg PO BID #60 capsule 12/04/20 [Rx] HYDROcodone/APAP 10-325MG [[place] 10-325] 1 tab PO Q4HR PRN #42 tab 12/04/20 [Rx] Follow up Appointment(s)/Referral(s): Maicol Owens NPC [Nurse Practitioner] - 1 Week (at 1pm) [facility], [NON-STAFF] - 1 Week Sandeep Graves MD [STAFF PHYSICIAN] - 12/14/20 1:00 pm Patient Instructions/Handouts: *Surgery [facility] - On-Q Pain Pump Discharge Instructions, Joint Replacement Surgery (DC) Activity/Diet/Wound Care/Special Instructions: Keep wound clean and dry Take meds as directed Follow-up with Dr. Graves in office Weight bear as tolerated May shower in 3 days if no bleeding Discharge Disposition: HOME WITH HOME HEALTH SERVICES
== END 2020-12-04 15:36 | disposition home health service (06) ==
LOC: OR 10:31 → 5NMEDONC 16:21 → OR 12-04 15:36
PROVIDERS: ATTEND Orthopaedic Surgery Sports Medicine
DX: M17.11 Unilateral primary osteoarthritis, right knee (principal); M25.761 Osteophyte, right knee; J45.909 Unspecified asthma, uncomplicated; E66.9 Obesity, unspecified; Z68.33 Body mass index [BMI] 33.0-33.9, adult; K21.9 Gastro-esophageal reflux disease without esophagitis; Z87.448 Personal history of other diseases of urinary system; Z97.3 Presence of spectacles and contact lenses; Z96.652 Presence of left artificial knee joint; Z98.890 Other specified postprocedural states; Z87.891 Personal history of nicotine dependence; Z86.19 Personal history of other infectious and parasitic diseases; Z87.442 Personal history of urinary calculi; Z87.440 Personal history of urinary (tract) infections; Z82.61 Family history of arthritis; Z83.3 Family history of diabetes mellitus; Z80.0 Family history of malignant neoplasm of digestive organs; Z82.62 Family history of osteoporosis; Z79.82 Long term (current) use of aspirin; Z79.891 Long term (current) use of opiate analgesic; Z79.899 Other long term (current) drug therapy; Z88.2 Allergy status to sulfonamides
CPT/HCPCS: 97110; 97161; 81025; 64999; 64448; 76942; 85025; 81003; 88300; 87635; 73560; 27447; C1776; J2250; J1100; J0690 ×2; J2405; J3010; J2795; J2704; J1170

== ENCOUNTER → 2021-10-25 | Outpatient (CLI) | payer BC ==
--- NOTE | 2021-10-27 08:15 | MM ---
Reason for exam: screening (asymptomatic). Last mammogram was performed 1 year and 2 months ago. History: Family history of breast cancer in maternal aunt at age 50. Benign MG stereo VAD BX LT of the left breast, November 23, 2017. Physical Findings: A clinical breast exam by your physician is recommended on an annual basis and results should be correlated with mammographic findings. MG 3D Screening Mammo W/Cad Bilateral CC and MLO view(s) were taken. Prior study comparison: August 21, 2020, bilateral MG 3d diag mammo w/cad [facility]. December 14, 2018, bilateral MG 3d screening mammo w/cad. The breast tissue is heterogeneously dense. This may lower the sensitivity of mammography. Left upper outer quadrant focal asymmetries is more defined, partially disperses on 3D. Further evaluation recommended. These results were verbally communicated with the patient and result sheet given to the patient on 10/25/21. ASSESSMENT: Incomplete: need additional imaging evaluation, BI-RAD 0 RECOMMENDATION: Special view mammogram of the left breast. (3D) If lesion persists on supplemental views, image directed ultrasound is recommended. [facility] will attempt to contact patient to return for supplemental views and ultrasound if indicated.
== END | disposition home or self-care (01) ==
LOC: RADMAMWWP 13:55
PROVIDERS: ATTEND Surgery
DX: Z12.31 Encounter for screening mammogram for malignant neoplasm of breast (principal); Z80.3 Family history of malignant neoplasm of breast
CPT/HCPCS: 77063; 77067

== ENCOUNTER → 2021-10-28 | Outpatient (CLI) | payer BC ==
--- NOTE | 2021-10-28 09:56 | MM ---
Reason for exam: additional evaluation requested from abnormal screening. Last mammogram was performed less than 1 month ago. History: Family history of breast cancer in maternal aunt at age 50. Benign MG stereo VAD BX LT of the left breast, November 23, 2017. Physical Findings: A clinical breast exam by your physician is recommended on an annual basis and results should be correlated with mammographic findings. MG 3D Work Up W/Cad LT Spot compression CC, spot compression MLO, and LM view(s) were taken of the left breast. Prior study comparison: October 25, 2021, bilateral MG 3d screening mammo w/cad. August 21, 2020, bilateral MG 3d diag mammo w/cad ADELA. The breast tissue is heterogeneously dense. This may lower the sensitivity of mammography. At 1 o'clock area is improved at spot compression however precautionary ultrasound is recommended, 7.5cm from nipple. These results were verbally communicated with the patient and result sheet given to the patient on 10/28/21. ASSESSMENT: Incomplete: need additional imaging evaluation, BI-RAD 0 RECOMMENDATION: Ultrasound of the left breast.
--- NOTE | 2021-10-28 09:57 | USB ---
Reason for exam: additional evaluation requested from abnormal screening. History: Family history of breast cancer in maternal aunt at age 50. Benign MG stereo VAD BX LT of the left breast, November 23, 2017. US Breast Workup Limited LT Left limited breast ultrasound including focal area of concern, retroareolar and axilla demonstrates a 1.6 x 1.2 x 0.5cm cystic lesion with septations at 1 o'clock 6cm from nipple. These results were verbally communicated with the patient and result sheet given to the patient on 10/28/21. ASSESSMENT: Probably benign, BI-RAD 3 RECOMMENDATION: Ultrasound of the left breast in 6 months.
== END | disposition home or self-care (01) ==
LOC: RADMAMWWP 08:33
PROVIDERS: ATTEND Surgery
DX: R92.8 Other abnormal and inconclusive findings on diagnostic imaging of breast (principal); Z80.3 Family history of malignant neoplasm of breast
CPT/HCPCS: 77061; 77065

== ENCOUNTER → 2021-12-16 | Outpatient (CLI) | payer BC ==
[2021-12-16 09:14] VITALS: BP 117/78; PULSE 78; RESP 13; TEMP 98.3
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
== END ==
LOC: WWCWWP 08:59
PROVIDERS: ATTEND Surgery
DX: N60.12 Diffuse cystic mastopathy of left breast (principal); N62 Hypertrophy of breast; R92.8 Other abnormal and inconclusive findings on diagnostic imaging of breast; Z88.2 Allergy status to sulfonamides; Z87.891 Personal history of nicotine dependence

== ENCOUNTER → 2022-06-14 | Outpatient (CLI) | payer BC ==
--- NOTE | 2022-06-14 08:37 | USB ---
Reason for Exam: Follow-up at short interval from prior study. Patient History: Menarche at age 15. First Full-Term at age 24. 11/23/2017, Benign Core Biopsy on the left side. Maternal aunt had breast cancer, age 50. Risk Values: Jaylyn 5 year model risk: 1.2%. NCI Lifetime model risk: 8.8%. Technique: Method: Targeted. Prior Study Comparison: 08/21/2020 Bilateral Diagnostic Mammogram, [facility]. 10/25/2021 Bilateral Screening Mammogram, [facility]. 10/28/2021 Left Diagnostic Mammogram, [facility]. 10/28/2021 Left Diagnostic Ultrasound, [facility]. Findings: The upper outer quadrant of the left breast, the axilla of the left breast and the retroareolar of the left breast were scanned. There is slightly irregular hypoechoic area with good through transmission and some internal echogenicity. Cluster of cysts or complex cyst appears to be present. This currently measures 1.4 x 0.4 x 0.9 cm. Previous measurement 1.6 x 0.5 x 1.2 cm.. Overall Assessment: Probably benign, BI-RAD 3 Management: Screening Mammogram of both breasts in 6 months. Diagnostic Breast Ultrasound of the left breast in 6 months. A clinical breast exam by your physician is recommended on an annual basis and results should be correlated with mammographic findings. This exam should not preclude additional follow-up of suspicious palpable abnormalities. ??Results were given to the patient verbally at the time of exam. Electronically signed and approved by: Flakito Rene D.O. Radiologis
== END | disposition home or self-care (01) ==
LOC: RADUSWWP 07:54
PROVIDERS: ATTEND Surgery
DX: R92.8 Other abnormal and inconclusive findings on diagnostic imaging of breast (principal); Z80.3 Family history of malignant neoplasm of breast

== ENCOUNTER → 2022-06-14 | Outpatient (CLI) | payer BC ==
--- NOTE | 2022-06-14 15:53 | BD ---
EXAMINATION TYPE: Axial Bone Density DATE OF EXAM: 06/14/2022 COMPARISON: FIRST DEXA AT [facility] CLINICAL HISTORY: 56 years year old Female. ICD-10 CODE: Z13.820 Screening for osteoporosis N95.1 me nop sym Height: 60.5IN Weight: 199LB FRAX RISK QUESTIONS: Family History (Parent hip fracture): YES History of Fracture in Adulthood: YES Secondary Osteoporosis: RISK FACTORS HISTORY OF: Active: YES Postmenopausal woman: NO If Premenopausal, do you have irregular periods: YES Lost more than 2 inches in height since high school: YES MEDICATIONS: Additional Medications: REFLUX MED, VITAMIN D Additional History: ADELA ANKLE FX, TIB FIB FX EXAM MEASUREMENTS: Bone mineral densitometry was performed using the OpenQ System. Bone mineral density as measured about the Lumbar spine is: ----- L1-L4(G/cm2): 1.032 T Score Values are as follows: ----- L1: -1.7 ----- L2: -1.4 ----- L3: -1.5 ----- L4: -0.6 ----- L1-L4: -1.2 FIRST DEXA AT [facility] Bone mineral density about the R hip (g/cm2): 0.794 Bone mineral density about the L hip (g/cm2): 0.803 T Score values are as follows: -----R Neck: -2.4 -----L Neck: -2.4 -----R Total: -1.7 -----L Total: -1.6 FIRST DEXA AT [facility] FRAX%s: The graph provided illustrates a 25.8% chance for a major osteoporotic fx and a 2.7% chance f or the hips probability for fx in 10 years time. IMPRESSION: Osteopenia (T Score between -2.5 and -1). There is slightly increased risk of fracture and the patient may be considered for treatment. Re-Screen 2-5 years. NOTE: T-SCORE=SD OF THE YOUNG ADULT MEAN.
== END | disposition home or self-care (01) ==
LOC: RADBDWWP 07:52
PROVIDERS: ATTEND Obstetrics & Gynecology
DX: M85.89 Other specified disorders of bone density and structure, multiple sites (principal); Z78.0 Asymptomatic menopausal state
CPT/HCPCS: 77080

== ENCOUNTER → 2022-06-17 | Outpatient (CLI) | payer BC ==
[2022-06-17 08:59] VITALS: BP 144/87; PULSE 58; RESP 17; TEMP 98
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
== END | disposition home or self-care (01) ==
LOC: WWCWWP 08:42
PROVIDERS: ATTEND Surgery
DX: Z53.9 Procedure and treatment not carried out, unspecified reason (principal)

== ENCOUNTER → 2022-12-13 | Outpatient (CLI) | payer BC ==
--- NOTE | 2022-12-13 09:58 | MM ---
Reason for Exam: Additional evaluation requested from prior study. Last mammogram was performed 1 year(s) and 2 month(s) ago. Patient History: Menarche at age 15. First Full-Term at age 24. Postmenopausal. Patient has history of breast feeding. 11/23/2017, Benign Core Biopsy on the left side. Maternal aunt had breast cancer, age 50. Risk Values: Jaylyn 5 year model risk: 1.2%. NCI Lifetime model risk: 8.7%. Prior Study Comparison: 10/26/2017 Bilateral Screening Mammogram, [facility]. 11/02/2017 Left Diagnostic Mammogram, [facility]. 07/12/2018 Left Diagnostic Mammogram, [facility]. 12/14/2018 Bilateral Screening Mammogram, [facility]. 08/21/2020 Bilateral Diagnostic Mammogram, [facility]. 10/25/2021 Bilateral Screening Mammogram, [facility]. 10/28/2021 Left Diagnostic Mammogram, [facility]. Tissue Density: The breast tissue is heterogeneously dense. This may lower the sensitivity of mammography. Findings: Analyzed By CAD. Left breast biopsy clip. Left breast posterior depth 10.9 cm from nipple is a 5 mm mass on CC view and appreciated on MLO axillary view 16.0 cm nipple. Right: No new suspicious masses, calcifications or distortions. Overall Assessment: Incomplete: need additional imaging evaluation, BI-RAD 0 Management: Diagnostic Breast Ultrasound of the left breast. Ultrasound imaging of the left breast including mass at posterior depth. Results were given to the patient verbally at the time of exam. Patient should continue monthly self-breast exams. A clinical breast exam by your physician is recommended on an annual basis. This exam should not preclude additional follow-up of suspicious palpable abnormalities. Note on Jaylyn scores and lifetime risk: 1. A Jaylyn score greater than 3% is considered moderate risk. If this is the case, consider specialist referral to assess eligibility for a risk reducing agent. 2. If overall lifetime risk for the development of breast cancer is 20% or higher, the patient may qualify for future screening with alternating mammogram and breast MRI. Electronically signed and approved by: Timothy Krause DO
--- NOTE | 2022-12-13 10:27 | USB ---
Reason for Exam: Follow-up at short interval from prior study. Patient History: Menarche at age 15. First Full-Term at age 24. Postmenopausal. Patient has history of breast feeding. 11/23/2017, Benign Core Biopsy on the left side. Maternal aunt had breast cancer, age 50. Risk Values: Jaylyn 5 year model risk: 1.2%. NCI Lifetime model risk: 8.7%. Technique: Method: Targeted. Prior Study Comparison: 08/21/2020 Bilateral Diagnostic Mammogram, [facility]. 10/25/2021 Bilateral Screening Mammogram, [facility]. 10/28/2021 Left Diagnostic Mammogram, [facility]. Findings: The upper outer quadrant of the left breast, the upper inner quadrant of the left breast, the axilla of the left breast and the retroareolar of the left breast were scanned. Imaged: Ultrasound imaging of: Area of concern, retroareolar region and axilla. * In the area of concern at 10:00 17 cm from nipple is a small morphologic normal lymph node with fatty hilum and vascular hilum. * Scattered cysts are present including at 1:00 8 cm nipple measuring 8 x 4 x 4 mm. There is an additional adjacent 8 x 11 x 4 mm which was seen on prior and is smaller today's exam previously measuring 14 x 4 x 9 mm. Overall Assessment: Benign, BI-RAD 2 Management: Screening Mammogram of both breasts in 1 year. A clinical breast exam by your physician is recommended on an annual basis and results should be correlated with mammographic findings. This exam should not preclude additional follow-up of suspicious palpable abnormalities. Results were given to the patient verbally at the time of exam. Electronically signed and approved by: Timothy Krause DO
== END | disposition home or self-care (01) ==
LOC: RADMAMWWP 09:03
PROVIDERS: ATTEND Surgery
DX: R92.8 Other abnormal and inconclusive findings on diagnostic imaging of breast (principal); Z78.0 Asymptomatic menopausal state; Z80.3 Family history of malignant neoplasm of breast
CPT/HCPCS: 77062; 77066

== ENCOUNTER → 2023-05-12 | Outpatient (CLI) | payer BC | END | disposition home or self-care (01) | LOC: RADUSWWP 09:00 | PROVIDERS: ATTEND Family Medicine | DX: Z53.9 Procedure and treatment not carried out, unspecified reason (principal) ==

== ENCOUNTER 2023-05-31 15:42 | Emergency (ER) | payer BC ==
--- NOTE | 2023-05-31 16:22 | ED ---
URI HPI - General Source: RN notes reviewed <Lilly Huang - Last Filed: 05/31/23 16:20> - General Source: patient, RN notes reviewed, old records reviewed <Eloy Bauman - Last Filed: 05/31/23 21:25> - General Stated Complaint: Tonsil Stones,Fever,Nausea Time Seen by Provider: 05/31/23 16:20 - History of Present Illness Initial Comments: Patient is a 57-year-old female who presents the emergency department for upper respiratory symptoms (Lilly Huang) Patient is a 57-year-old female presents emergency Department complaining of fevers, sore throat, cough. Also is complaining of some mild dysuria as well as lower flank pain. Symptoms have been somewhat chronic except for the flank pain . She is concerned for possible infection. Mostly upper respiratory but also concern for possible kidney stone or UTI. She is due to fly to [place] on Monday which is pressure was reevaluated. Was placed on amoxicillin yesterday for upper respiratory symptoms by her PCP however is concerned as the flank pain and dysuria somewhat started today.Patient initially started as a quick note. (Eloy Bauman) - Related Data Home Medications Medication Instructions Recorded Confirmed Omeprazole 40 mg PO QAM 09/17/17 06/17/22 Albuterol Inhaler [Ventolin Hfa 1 puff INHALATION DIRECTED PRN 08/20/20 06/17/22 Inhaler] Allergies Allergy/AdvReac Type Severity Reaction Status Date / Time sulfamethoxazole AdvReac "HAVE Verified 05/31/23 16:21 [From Bactrim] BECOME IMMUNE TO IT" trimethoprim [From Bactrim] AdvReac "HAVE Verified 05/31/23 16:21 BECOME IMMUNE TO IT" Review of Systems ROS Other: All systems not noted in ROS Statement are negative. <Lilly Huang - Last Filed: 05/31/23 16:20> ROS Other: All systems not noted in ROS Statement are negative. <Eloy Bauman - Last Filed: 05/31/23 21:25> ROS Statement: Those systems with pertinent positive or pertinent negative responses have been documented in the HPI. Review of Systems: CONST: Endorses fever EYES: Denies blurry vision ENT: Endorses nasal congestion, sore throat. C/V: Denies Chest pain RESP: Denies shortness of breath GI: Endorses flank pain : Endorses dysuria SKIN: Denies rash. MSK: Denies joint pain. NEURO: Denies headache (Eloy Bauman) Past Medical History Past Medical History: GERD/Reflux, Skin Disorder Additional Past Medical History / Comment(s): kidney stones, uti's. RECURRING IRRITATION ON BACK. VARICOSE VEINS. TESTED POS FOR HEPATITS A IN PAST. History of Any Multi-Drug Resistant Organisms: ESBL Date of last positivie culture/infection: 09/17/17 MDRO Source:: ESBL URINE, treated and cleared Past Surgical History: Breast Surgery, Orthopedic Surgery Additional Past Surgical History / Comment(s): Right KNEE SX, lithotripsy, kidney stents, bilat bilateral shouldeR SX. LT leg FRACTURES surgery, 2006. LT BREAST BIOPSY. Past Anesthesia/Blood Transfusion Reactions: No Reported Reaction Additional Past Anesthesia/Blood Transfusion Reaction / Comment(s): HARD IV START Past Psychological History: No Psychological Hx Reported Smoking Status: Former smoker Past Alcohol Use History: Occasional Additional Past Alcohol Use History / Comment(s): SMOKED 18-24 YEARS OF AGE, 1/2-1PPD. Past Drug Use History: None Reported - Past Family History Mother Family Medical History: No Reported History Additional Family Medical History / Comment(s): Arthritis and ? osteoporosis Father Family Medical History: Cancer, Diabetes Mellitus Additional Family Medical History / Comment(s): COLON CA <Lilly Huang - Last Filed: 05/31/23 16:20> General Exam <Lilly Huang - Last Filed: 05/31/23 16:20> <Eloy Bauman - Last Filed: 05/31/23 21:25> - General Exam Comments Initial Comments: Visual Physical Exam Vital signs reviewed General: Well-appearing, nontoxic, no acute distress. Head: Normocephalic, atraumatic Eyes: PERRLA, EOMI ENT: Airway patent Chest: Nonlabored breathing Skin: No visual rash, normal skin tone Neuro: Alert and oriented 3 Musculoskeletal: No gross abnormalities (Lilly Huang) General: Appears in no acute distress. Low-grade fever. HEAD: Normal with no signs of head trauma. EYES: PERRLA, EOMI, conjunctiva normal, no discharge. ENT: Hearing grossly intact, . Erythematous posterior oropharynx with exudates. RESPIRATORY: Clear breath sounds bilaterally. No wheezes, rales, or rhonchi. C/V: Regular rate and rhythm. S1 and S2 auscultated, no edema, peripheral pulses 2+ and intact throughout ABD: Abd is soft, nontender, nondistended. No significant pain. Mild left- sided flank pain. EXT: Normal range of motion, no obvious deformity SKIN: No rashes or lesions observed on exposed skin. NEURO: Alert and Oriented 4. (Eloy Bauman) Course Vital Signs 05/31/23 05/31/23 16:16 20:26 Temperature 102.4 F H 98.2 F Pulse Rate 113 H 73 Respiratory 18 18 Rate Blood Pressure 153/86 104/67 O2 Sat by Pulse 98 95 Oximetry Medical Decision Making <Lilly Huang - Last Filed: 05/31/23 16:20> - Lab Data Result diagrams: 05/31/23 18:20 05/31/23 18:20 <Eloy Bauman - Last Filed: 05/31/23 21:25> - Medical Decision Making I performed the QuickNote portion of this chart - Lilly Huang PA-C (Lilly Huang) Was pt. sent in by a medical professional or institution (DALJIT Pollard, SOFTWARE DESIGN ANALYST, urgent care, hospital, or correction...) When possible be specific @ -No Did you speak to anyone other than the patient for history (EMS, parent, family, police, friend...)? What history was obtained from this source @ -No Did you review nursing and triage notes (agree or disagree)? Why? @ -I reviewed and agree with nursing and triage notes Were old charts reviewed (outside hosp., previous admission, EMS record, old EKG, old radiological studies, urgent care reports/EKG's, correction records)? Report findings @ -No old charts were reviewed Differential Diagnosis (chest pain, altered mental status, abdominal pain women, abdominal pain men, vaginal bleeding, weakness, fever, dyspnea, syncope, headache, dizziness, GI bleed, back pain, seizure, CVA, palpatations, mental health, musculoskeletal)? @ -Differential Fever: Pneumonia, viral URI, endocarditis, myocarditis, pericarditis, otitis, sinusitis, peritonsillar Abscess, retropharyngeal Abscess, epiglottitis, peritonitis, appendicitis, Jeanne cystitis, diverticulitis, hepatitis, colitis, UTI, PID, TOA, pyelonephritis, prostatitis, epididymitis, meningitis, encephalitis, pulmonary embolism, CVA, thyroid storm, pancreatitis, adrenal crisis, cavernous sinus thrombosis, this is not meant to be an all-inclusive list. EKG interpreted by me (3pts min.). @ -None done X-rays interpreted by me (1pt min.). @ -Chest x-ray reveals no obvious acute cardio pulmonary process. KUB x-ray reveals no obvious it intra-abdominal process. CT interpreted by me (1pt min.). @ -None done U/S interpreted by me (1pt. min.). @ -Ultrasound reveals a left-sided renal cyst but no evidence of obstructive uropathy. What testing was considered but not performed or refused? (CT, X-rays, U/S, labs)? Why? @ -None What meds were considered but not given or refused? Why? @ -None Did you discuss the management of the patient with other professionals (professionals i.e. , PA, SOFTWARE DESIGN ANALYST, lab, RT, psych nurse, social service technician, basketball referee, teacher, licensed loan officer, case reviewer)? Give summary @ -No Was smoking cessation discussed for >3mins.? @ -No Was critical care preformed (if so, how long)? @ -No Were there social determinants of health that impacted care today? How? (Homelessness, low income, unemployed, alcoholism, drug addiction, transportation, low edu. Level, literacy, decrease access to med. care, [place] [facility], rehab)? @ -No Was there de-escalation of care discussed even if they declined (Discuss DNR or withdrawal of care, Hospice)? DNR status @ -No What co-morbidities impacted this encounter? (DM, HTN, Smoking, COPD, CAD, Cancer, CVA, ARF, Chemo, Hep., AIDS, mental health diagnosis, sleep apnea, mor bid obesity)? @ -None Was patient admitted / discharged? Hospital course, mention meds given and route, prescriptions, significant lab abnormalities, going to OR and other pertinent info. @ -Based on the patient's presentation and physical exam, readily presents as a quick note. We will obtain abdominal labs, as well as infectious labs. Concern for kidney stone, UTI, viral infection. Patient be symptomatically treated with IV fluids. She will be given a dose of Tylenol. She was in agreement with this plan. Vital signs of any central limits. Patient's imaging unremarkable. Labs remarkable for mild leukocytosis of 16. Patient has strep pharyngitis. Negative urinalysis. Negative viral signs. Discussed results with the patient. She'll be discharged home at this time. She'll be given a dose of steroids. Patient is already on Augmentin at home and I recommended she continue the course. Strict return precautions discussed. I instructed the patient to follow up with their PCP in the next 1-3 days. I explained that the patient should return to the emergency department if they experience any worsening symptoms. Strict return precautions were discussed with the patient. The patient expressed understanding of these instructions. I answered all questions that the patient had. The patient was discharged home in good condition with their prescriptions and follow up information. Undiagnosed new problem with uncertain prognosis? @ -No Drug Therapy requiring intensive monitoring for toxicity (Heparin, Nitro, Insulin, Cardizem)? @ -No Were any procedures done? @ -No Diagnosis/symptom? @ -Strep Pharyngitis Acute, or Chronic, or Acute on Chronic? @ -Acute Uncomplicated (without systemic symptoms) or Complicated (systemic symptoms)? @ -Complicated Side effects of treatment? @ -No Exacerbation, Progression, or Severe Exacerbation? @ -No Poses a threat to life or bodily function? How? (Chest pain, USA, PA, pneumonia, PE, COPD, DKA, ARF, appy, cholecystitis, CVA, Diverticulitis, Homicidal, Suicidal, threat to staff... and all critical care pts) @ -No (Eloy Bauman) - Lab Data Lab Results 05/31/23 05/31/23 05/31/23 Range/Units 18:08 18:08 18:08 WBC (3.8-10.6) k/uL RBC (3.80-5.40) m/uL Hgb (11.4-16.0) gm/dL Hct (34.0-46.0) % MCV (80.0-100.0) fL MCH (25.0-35.0) pg MCHC (31.0-37.0) g/dL RDW (11.5-15.5) % Plt Count (150-450) k/uL MPV Neutrophils % % Lymphocytes % % Monocytes % % Eosinophils % % Basophils % % Neutrophils # (1.3-7.7) k/uL Lymphocytes # (1.0-4.8) k/uL Monocytes # (0-1.0) k/uL Eosinophils # (0-0.7) k/uL Basophils # (0-0.2) k/uL Sodium (137-145) mmol/L Potassium (3.5-5.1) mmol/L Chloride (98-107) mmol/L Carbon Dioxide (22-30) mmol/L Anion Gap mmol/L BUN (7-17) mg/dL Creatinine (0.52-1.04) mg/dL Est GFR (CKD-EPI)AfAm (>60 ml/min/1.73 sqM) Est GFR (CKD-EPI)NonAf (>60 ml/min/1.73 sqM) Glucose (74-99) mg/dL Plasma Lactic Acid Karan (0.7-2.0) mmol/L Calcium (8.4-10.2) mg/dL Total Bilirubin (0.2-1.3) mg/dL AST (14-36) U/L ALT (4-34) U/L Alkaline Phosphatase (38-126) U/L Total Protein (6.3-8.2) g/dL Albumin (3.5-5.0) g/dL Amylase (30-110) U/L Lipase (23-300) U/L Urine Color Light Yellow Urine Appearance Clear (Clear) Urine pH 5.5 (5.0-8.0) Ur Specific [place] 1.019 (1.001-1.035) Urine Protein Trace H (Negative) Urine Glucose (UA) Negative (Negative) Urine Ketones 2+ H (Negative) Urine Blood Negative (Negative) Urine Nitrite Negative (Negative) Urine Bilirubin Negative (Negative) Urine Urobilinogen <2.0 (<2.0) mg/dL Ur Leukocyte Esterase Negative (Negative) Influenza Type A (PCR) Not Detected (Not Detectd) Influenza Type B (PCR) Not Detected (Not Detectd) RSV (PCR) Not Detected (Not Detectd) SARS-CoV-2 (PCR) Not Detected (Not Detectd) Group A Strep (PCR) DETECTED A (Not Detectd) 1005/31/23 05/31/23 Range/Units 18:20 18:20 18:44 WBC 16.8 H (3.8-10.6) k/uL RBC 4.79 (3.80-5.40) m/uL Hgb 14.6 (11.4-16.0) gm/dL Hct 43.5 (34.0-46.0) % MCV 90.8 (80.0-100.0) fL MCH 30.4 (25.0-35.0) pg MCHC 33.4 (31.0-37.0) g/dL RDW 12.8 (11.5-15.5) % Plt Count 277 (150-450) k/uL MPV 8.0 Neutrophils % 85 % Lymphocytes % 9 % Monocytes % 4 % Eosinophils % 1 % Basophils % 0 % Neutrophils # 14.3 H (1.3-7.7) k/uL Lymphocytes # 1.5 (1.0-4.8) k/uL Monocytes # 0.7 (0-1.0) k/uL Eosinophils # 0.2 (0-0.7) k/uL Basophils # 0.0 (0-0.2) k/uL Sodium 136 L (137-145) mmol/L Potassium 3.9 (3.5-5.1) mmol/L Chloride 104 (98-107) mmol/L Carbon Dioxide 22 (22-30) mmol/L Anion Gap 10 mmol/L BUN 9 (7-17) mg/dL Creatinine 0.41 L (0.52-1.04) mg/dL Est GFR (CKD-EPI)AfAm >90 (>60 ml/min/1.73 sqM) Est GFR (CKD-EPI)NonAf >90 (>60 ml/min/1.73 sqM) Glucose 105 H (74-99) mg/dL Plasma Lactic Acid Karan 0.7 (0.7-2.0) mmol/L Calcium 10.3 H (8.4-10.2) mg/dL Total Bilirubin 0.7 (0.2-1.3) mg/dL AST 24 (14-36) U/L ALT 22 (4-34) U/L Alkaline Phosphatase 144 H (38-126) U/L Total Protein 7.3 (6.3-8.2) g/dL Albumin 4.3 (3.5-5.0) g/dL Amylase 48 (30-110) U/L Lipase 53 (23-300) U/L Urine Color Urine Appearance (Clear) Urine pH (5.0-8.0) Ur Specific [place] (1.001-1.035) Urine Protein (Negative) Urine Glucose (UA) (Negative) Urine Ketones (Negative) Urine Blood (Negative) Urine Nitrite (Negative) Urine Bilirubin (Negative) Urine Urobilinogen (<2.0) mg/dL Ur Leukocyte Esterase (Negative) Influenza Type A (PCR) (Not Detectd) Influenza Type B (PCR) (Not Detectd) RSV (PCR) (Not Detectd) SARS-CoV-2 (PCR) (Not Detectd) Group A Strep (PCR) (Not Detectd) Disposition <Llily Huang - Last Filed: 05/31/23 16:20> Is patient prescribed a controlled substance at d/c from ED?: No Time of Disposition: 19:45 <Eloy Bauman - Last Filed: 05/31/23 21:25> Clinical Impression: Strep pharyngitis Disposition: HOME SELF-CARE Condition: Fair Instructions (If sedation given, give patient instructions): Strep Throat (ED) Referrals: Jt Muniz MD [Primary Care Provider] - 1-2 days
[2023-05-31 16:37] VITALS: RESP 18
[2023-05-31] MEDS ORDERED: SODIUM CHLORIDE 0.9% 1,000 ML IV STA (18:03)
[2023-05-31] MEDS ORDERED: ACETAMINOPHEN TAB 500 MG TAB PO STA (18:04)
[2023-05-31 18:25] LABS: Appearance,Urine Clear (Clear); Bilirubin,Urine Negative (Negative); Blood,Urine Negative (Negative); Color,Urine Light Yellow; Glucose,Urine (UA) Negative (Negative); Ketones,Urine 2+ (Negative); Leukocyte Esterase,Urine Negative (Negative); Nitrite,Urine Negative (Negative); PH, Urine 5.5 (5.0-8.0); Protein,Urine Trace (Negative); Specific Gravity,Urine 1.019 (1.001-1.035); Urobilinogen,Urine <2.0 mg/dL (<2.0)
[2023-05-31 18:40] LABS: Basophils % (A) 0 %; Eosinophils # (A) 0.2 k/uL (0-0.7); Eosinophils % (A) 1 %; HCT 43.5 % (34.0-46.0); HGB 14.6 gm/dL (11.4-16.0); Lymphocytes # (A) 1.5 k/uL (1.0-4.8); Lymphocytes % (A) 9 %; MCH 30.4 pg (25.0-35.0); MCHC 33.4 g/dL (31.0-37.0); MCV 90.8 fL (80.0-100.0); Monocytes # (A) 0.7 k/uL (0-1.0); Monocytes % (A) 4 %; Neutrophils # (A) 14.3 k/uL (1.3-7.7); Neutrophils % (A) 85 %; Platelet Count 277 k/uL (150-450); RBC 4.79 m/uL (3.80-5.40); RDW 12.8 % (11.5-15.5); WBC 16.8 k/uL (3.8-10.6)
--- NOTE | 2023-05-31 18:42 | XR ---
EXAMINATION TYPE: XR chest 2V DATE OF EXAM: 05/31/2023 6:35 PM CLINICAL INDICATION:Female, 57 years old with history of abdominal pain; [facility] COMPARISON: Chest radiographs from 09/21/2017 TECHNIQUE: XR chest 2V Frontal and lateral views of the chest. FINDINGS: Lungs/Pleura: There is flattening of the diaphragm with increased lucency of the lungs. No evidence o f pneumothorax, pleural effusion or focal consolidation. Pulmonary vascularity: Unremarkable. Heart/mediastinum: Cardiomediastinal silhouette is unremarkable. Musculoskeletal: No acute osseous pathology. IMPRESSION: 1. No acute cardiopulmonary disease process. 2. COPD changes.
--- NOTE | 2023-05-31 18:42 | XR ---
EXAMINATION TYPE: XR KUB DATE OF EXAM: 05/31/2023 6:35 PM CLINICAL INDICATION:Female, 57 years old with history of abdominal pain; [facility] COMPARISON: 09/17/2017. TECHNIQUE: One radiographic view of the abdomen was obtained. FINDINGS: The bowel gas pattern is nonspecific without dilated loops of small or large bowel. There i s no evidence for organomegaly or pneumoperitoneum. The osseous structures are intact. No abnormal calcifications are present. Fecal material and gas are demonstrated throughout the colon and rectum. IMPRESSION: Nonspecific bowel gas pattern without radiographic evidence for acute process.
[2023-05-31 18:49] LABS: AST 24 U/L (14-36); African American GFR (CKD) >90 (>60 ml/min/1.73 sqM); Albumin 4.3 g/dL (3.5-5.0); Alkaline Phosphatase 144 U/L (38-126); Amylase 48 U/L (30-110); Blood Urea Nitrogen 9 mg/dL (7-17); Calcium 10.3 mg/dL (8.4-10.2); Carbon Dioxide 22 mmol/L (22-30); Chloride 104 mmol/L (98-107); Glucose 105 mg/dL (74-99); Non-African American GFR(CKD) >90 (>60 ml/min/1.73 sqM); Total Bilirubin 0.7 mg/dL (0.2-1.3); Total Protein 7.3 g/dL (6.3-8.2)
[2023-05-31 19:04] LABS: ALT 22 U/L (4-34); Anion Gap 10 mmol/L; Lipase 53 U/L (23-300); Potassium 3.9 mmol/L (3.5-5.1); Sodium 136 mmol/L (137-145)
--- NOTE | 2023-05-31 19:45 | US ---
EXAMINATION TYPE: US renals and bladder DATE OF EXAM: 05/31/2023 COMPARISON: 05/12/23 CLINICAL INDICATION: Female, 57 years old with history of eval for hydro/stone; bilateral flank pain, fever. Hx of renal stones. EXAM MEASUREMENTS: Right Kidney: 11.4 x 5.7 x 4.5 cm Left Kidney: 10.6 x 5.5 x 5.5 cm Right Kidney: No hydronephrosis or masses seen Left Kidney: Cystic area seen in superior pole measuring 1.7 x 1.8 x 1.7cm Bladder: wnl Bilateral Jets seen: Yes There is no evidence for hydronephrosis at this point in time. No nephrolithiasis is seen. No samir s are identified. The urinary bladder is anechoic. Bilateral ureteral jets are seen. IMPRESSION: 1. Left renal indeterminate lesion could represent solid mass versus complex cyst measuring up to 1. 8 cm. A MRI renal mass protocol may be of benefit. No evidence for obstructive uropathy.
[2023-05-31] MEDS ORDERED: AMOXIC-POT CLAV 875-125MG 1 EACH TAB PO STA (19:54)
[2023-05-31] MEDS ORDERED: dexAMETHasone 4 MG TAB PO STA (19:54)
[2023-05-31 20:30] VITALS: BP 104/67; PULSE 73; TEMP 98.2
== END 2023-05-31 20:35 | disposition home or self-care (01) ==
LOC: EC 15:42
DX: J02.0 Streptococcal pharyngitis (principal); B95.0 Streptococcus, group A, as the cause of diseases classified elsewhere; K21.9 Gastro-esophageal reflux disease without esophagitis; Z87.891 Personal history of nicotine dependence; Z88.2 Allergy status to sulfonamides; Z79.899 Other long term (current) drug therapy; Z20.822 Contact with and (suspected) exposure to COVID-19
CPT/HCPCS: 36415; 87651; 80053; 82150; 83605; 83690; 85025; 81003; 87636; 71046; 74018; 76770; 99284; 96360; 96361; J8540

== ENCOUNTER 2023-07-05 06:04 | Day surgery (SDC) | payer BC ==
[2023-07-03 11:38] VITALS: BMI 33.2
[2023-07-05] MEDS ORDERED: LACTATED RINGERS 1,000 ML IV SCH (06:30)
[2023-07-05] MEDS ORDERED: LIDOCAINE 1% (10MG/ML) FOR IV START INTRADERMA PRN (06:30)
[2023-07-05 07:00] VITALS: TEMP 97.6
[2023-07-05] MEDS ORDERED: LIDOCAINE 2% (PF) 20 MG/ML 5 ML VIAL ONE (07:00)
[2023-07-05] MEDS ORDERED: PROPOFOL 10 MG/ML 20 ML VIAL IV ONE (07:00)
[2023-07-05] MEDS ORDERED: fentaNYL (PF) 50 MCG/ML 2 ML AMP ONE (07:00)
--- NOTE | 2023-07-05 07:23 | P.PCN ---
Date of Procedure: 07/05/23 Procedure(s) Performed: Brief history: Patient is a pleasant 57-year-old white female scheduled for an elective upper endoscopy as well as colonoscopy as a part of evaluation of GERD/intermittent dysphagia to solids and evaluation of chronic diarrhea. She has history of GERD and has been on omeprazole 20 mg daily. His been having diarrhea for about a day from 3-5 a day which are loose to watery in consistency with no blood or mucus in the stool. Procedure performed: Esophagogastroduodenoscopy with biopsy and dilation Colonoscopy with biopsy Preoperative diagnosis: /Intermittent dysphagia to solids/long-standing history of GERD Chronic diarrhea Anesthesia: MAC Procedure: After informed consent was obtained from the patient was brought into the endoscopy unit and IV sedation was administered by anesthesia under continuous monitoring. Initially upper endoscopy was done. The Olympus GF 160 video endoscope was inserted inserted into the mouth and esophagus intubated without any difficulty and was gradually advanced into the stomach and duodenum and carefully examined. The bulb and second part of the duodenum appeared normal. Biopsies were done from the duodenum to rule out celiac disease. The scope was then withdrawn into the stomach adequately insufflated with air and upon car eful examination the antrum had mild gastritis and biopsies were done from this area. body, cardia and fundus appeared normal. The scope was then withdrawn into the esophagus. Moderate hiatal hernia noted. The GE junction was located at 32 cm to the incisors. There was a distal esophagus which are identified which was dilated using 15 and 16.5 mm TTS balloon in sequential fashion for 60 seconds. Following dilation there was some mucosal oozing identified. There were 2 linear erosions in the distal esophagus consistent with LA grade B reflux esophagitis. Rest of the esophagus appeared normal. Patient tolerated the procedure well. At this time the patient continued to remain sedation. Initial digital rectal examination was normal. Olympus CF 160 video colonoscope was then inserted into the rectum and gradually advanced to the cecum without any difficulty. Careful examination was performed as the scope was gradually being withdrawn. The prep was excellent.Terminal ileum intubated which appeared normal. The cecum, ascending colon, transverse colon, descending colon, sigmoid colon and rectum appeared normal. random biopsies were done from ascending and descending colon to rule out collagenous/microscopic colitis. Retroflexion was performed in the rectum and no lesions were noted. Patient tolerated the procedure well. Impression: 1. Upper endoscopy revealed distal esophageal strictures status post balloon dilation using 15 and 16.5 mm TTS balloon, moderate hiatal hernia, LA grade B reflux esophagitis and mild antral gastritis 2.Colonoscopy was within normal limits with no evidence of colorectal neoplasia. Recommendations: Findings of this examination were discussed with the patient as well [place] family. She was advised to follow with the biopsy returns. Increase omeprazole to 20 mg twice daily. There liquids for 2 hours. Follow up in office in one month.
[2023-07-05 07:58] VITALS: BP 143/76; PULSE 72; RESP 20
== END 2023-07-05 08:26 | disposition home or self-care (01) ==
LOC: ORWHC2ENDO 06:04
PROVIDERS: ATTEND Internal Medicine Gastroenterology
DX: D72.820 Lymphocytosis (symptomatic) (principal); K29.50 Unspecified chronic gastritis without bleeding; K21.00 Gastro-esophageal reflux disease with esophagitis, without bleeding; K52.9 Noninfective gastroenteritis and colitis, unspecified; K44.9 Diaphragmatic hernia without obstruction or gangrene; Z88.2 Allergy status to sulfonamides; Z98.890 Other specified postprocedural states; Z79.899 Other long term (current) drug therapy
CPT/HCPCS: 88305; 45380; 43239; 43249; J3010; J2704; J2001; C1726

== ENCOUNTER → 2023-08-04 | Outpatient (CLI) | payer BC ==
--- NOTE | 2023-08-04 14:53 | CT ---
EXAMINATION TYPE: CT sinus wo con CT DLP: 550.0 mGycm, Automated exposure control for dose reduction was used. DATE OF EXAM: 08/04/2023 1:37 PM COMPARISON: None. CLINICAL INDICATION:Female, 57 years old with history of J32.0 SINUSITIS, chronic sinusitis TECHNIQUE: Multiple thin axial images were obtained through the paranasal sinuses without the use of IV contrast. Additional coronal and sagittal reformatted images were submitted for evaluation. Contrast used: none Oral contrast used: none FINDINGS: Paranasal sinuses are relatively clear with mild mucosal thickening in the inferior aspect of the max illary sinuses. The ostiomeatal units, frontonasal and sphenoethmoidal recesses are all patent. The v isualized orbits and globes are intact. The temporal bones bones are intact. No evidence for bony deh iscence. Visualized intracranial portions are within normal limits without evidence for acute process . No evidence of fracture. IMPRESSION: 1. Minimal paranasal sinus disease.. 2. The ostiomeatal units, frontonasal and sphenoethmoidal recesses are clear.
== END | disposition home or self-care (01) ==
LOC: RADCTMAIN 13:05
PROVIDERS: ATTEND Otolaryngology
DX: J32.0 Chronic maxillary sinusitis (principal); J34.89 Other specified disorders of nose and nasal sinuses
CPT/HCPCS: 70486

== ENCOUNTER → 2024-02-13 | Outpatient (CLI) | payer BC ==
[2024-02-13 22:47] LABS: Clam IgE <0.10 kU/L; Codfish IgE <0.10 kU/L; Egg White IgE 0.32 kU/L; Peanut IgE <0.10 kU/L; Scallop IgE <0.10 kU/L; Shrimp IgE <0.10 kU/L; Soybean IgE <0.10 kU/L; Walnut IgE (Food) <0.10 kU/L
[2024-02-14 12:12] LABS: Apple IgE Class CLASS 0; Avocado Class CLASS 0; Banana IgE Class CLASS 0; Beef IgE <0.10 kU/L (<0.10); Beef IgE Class CLASS 0; Celery IgE <0.10 kU/L (<0.10); Celery IgE Class CLASS 0; Chicken IgE Class CLASS 0; Chocolate IgE Class CLASS 0; Coffee IgE <0.10 kU/L (<0.10); Coffee IgE Class CLASS 0; Crab IgE <0.10 kU/L (<0.10); Crab IgE Class CLASS 0; Egg Yolk IgE Class CLASS 0; Gluten IgE Class CLASS 2; Hazelnut IgE <0.10 kU/L (<0.10); Hazelnut IgE Class CLASS 0; Kiwi IgE <0.10 kU/L (<0.10); Kiwi IgE Class CLASS 0; Lettuce IgE Class CLASS 0; Lobster IgE <0.10 kU/L (<0.10); Lobster IgE Class CLASS 0; Oat IgE Class CLASS 0; Onion IgE <0.10 kU/L (<0.10); Onion IgE Class CLASS 0; Pork IgE Class CLASS 0; Potato IgE <0.10 kU/L (<0.10); Potato IgE Class CLASS 0; Salmon IgE <0.10 kU/L (<0.10); Salmon IgE Class CLASS 0; Tea IgE <0.10 kU/L (<0.10); Tea IgE Class CLASS 0; Yeast Bakers/Brew IgE <0.10 kU/L (<0.10); Yeast Bakers/Brew IgE Class CLASS 0
== END | disposition home or self-care (01) ==
LOC: LABWHC1 14:55
PROVIDERS: ATTEND Otolaryngology
DX: J30.89 Other allergic rhinitis (principal)
CPT/HCPCS: 36415; 82785; 86003

== ENCOUNTER → 2024-06-14 | Outpatient (CLI) | payer BC ==
--- NOTE | 2024-06-23 17:08 | MM ---
Reason for Exam: Screening (asymptomatic). Last mammogram was performed 1 year(s) and 6 month(s) ago. Patient History: Menarche at age 15. First Full-Term at age 24. Postmenopausal. Patient has history of breast feeding. 11/23/2017, Benign Core Biopsy on the left side. Maternal aunt had breast cancer, age 50. Risk Values: Jaylyn 5 year model risk: 1.3%. NCI Lifetime model risk: 8.5%. Prior Study Comparison: 10/25/2021 Bilateral Screening Mammogram, [facility]. 10/28/2021 Left Diagnostic Mammogram, [facility]. 12/13/2022 Bilateral MG 3D diag mammo w/cad ADELA, [facility]. Tissue Density: The breasts are heterogeneously dense, which may obscure small masses. Findings: Analyzed By CAD. The pattern is stable. Focal asymmetry of the left breast is stable. No suspicious groups of microcalcifications, spiculated or lobular masses, architectural distortion or other secondary signs of malignancy are mammographically apparent. Overall Assessment: Benign, BI-RAD 2 Management: Screening Mammogram of both breasts in 1 year. A negative mammogram report should not preclude additional follow up of suspicious palpable abnormalities. Patient should continue monthly self breast exam. A clinical breast exam by your physician is recommended on an annual basis and results should be correlated with mammographic findings. Note on Jaylyn scores and lifetime risk: 1. A Jaylyn score greater than 3% is considered moderate risk. If this is the case, consider specialist referral to assess eligibility for a risk reducing agent. 2. If overall lifetime risk for the development of breast cancer is 20% or higher, the patient may qualify for future screening with alternating mammogram and breast MRI. [facility], , 06/23/2024 5:05 PM. Electronically signed and approved by: Flakito Rene D.O. Radiologis
== END | disposition home or self-care (01) ==
LOC: RADMAMWWP 11:13
PROVIDERS: ATTEND Surgery
DX: Z12.31 Encounter for screening mammogram for malignant neoplasm of breast (principal); Z80.3 Family history of malignant neoplasm of breast; Z78.0 Asymptomatic menopausal state; R92.333 Mammographic heterogeneous density, bilateral breasts
CPT/HCPCS: 77063; 77067

== ENCOUNTER → 2024-08-29 | Outpatient (CLI) | payer BC ==
[2024-08-29 11:12] VITALS: BP 147/83; PULSE 82; RESP 16; TEMP 98.4
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
== END ==
LOC: WWCWWP 10:38
PROVIDERS: ATTEND Surgery
DX: N62 Hypertrophy of breast (principal); N64.52 Nipple discharge; F15.90 Other stimulant use, unspecified, uncomplicated; Z88.2 Allergy status to sulfonamides; Z88.1 Allergy status to other antibiotic agents; Z87.891 Personal history of nicotine dependence

== ENCOUNTER → 2024-09-07 | Outpatient (CLI) | payer BC ==
--- NOTE | 2024-09-10 15:16 | BMR ---
EXAM DATE: 09/07/2024 EXAM DESCRIPTION: MRI-Breast Bilat (W/WO Contrast) INDICATION: >20% lifetime risk for malignancy presenting for high risk surveillance COMPARISON: Comparison is made with relevant prior imaging in PACS. CONTRAST: 8.5 cc of Gadavist TECHNIQUE: Multiplanar MRI imaging of both breasts was performed with a dedicated breast coil, before and after intravenous administration of gadolinium contrast, using the standard breast mass protocol. Computer-aided detection was used to aid in interpretation. FINDINGS: General breast composition: There are scattered areas of fibroglandular tissue Background parenchymal enhancement: Moderate FINDINGS: Right Breast: Review of the dynamic contrast-enhanced series shows no rapidly enhancing masses, suspicious enhancement patterns or other abnormalities. The T2 weighted series shows scattered benign cysts. Left Breast: Review of the dynamic contrast-enhanced series shows no rapidly enhancing masses, suspicious enhancement patterns or other abnormalities. The T2 weighted series shows scattered benign cysts. Miscellaneous findings:Cholelithiasis. IMPRESSION: No MRI evidence of malignancy. BI-RADS Category1- Negative Recommendation: MRI screening in 1 year. Recommend routine screening on schedule, the patient is due for screening mammogram in 06/2025. Cholelithiasis MTDD
== END | disposition home or self-care (01) ==
LOC: RADMRIMAIN 14:35
PROVIDERS: ATTEND Surgery
DX: R68.89 Other general symptoms and signs (principal)
CPT/HCPCS: 77049; A9585

== ENCOUNTER → 2024-10-25 | Outpatient (CLI) | payer BC ==
[2024-10-25 12:20] VITALS: BP 123/77; PULSE 87; RESP 17; TEMP 97.9
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
== END ==
LOC: WWCWWP 11:42
PROVIDERS: ATTEND Surgery
DX: N62 Hypertrophy of breast (principal); N95.9 Unspecified menopausal and perimenopausal disorder; N64.52 Nipple discharge; Z88.2 Allergy status to sulfonamides; Z87.891 Personal history of nicotine dependence